=== PATIENT | female | born 1955 | race Caucasian/White ===

== ENCOUNTER 2017-12-11 11:54 | Observation (INO) ==
[2017-12-11] MEDS ORDERED: Morphine Sulfate Inj 2 MG/ML Vial IV.PUSH PRN (14:06)
[2017-12-11] MEDS ORDERED: Acetaminophen 500 MG Tablet PO PRN (14:06)
--- NOTE | 2017-12-11 15:40 | P.HP ---
History of Present Illness Primary Care Physician: No Primary Care Physician Chief Complaint: Chest pain History of Present Illness: 62-year-old female with no chronic medical illnesses who presented to the hospital for evaluation of chest pain. Patient states for last couple weeks she has been having intermittent chest discomfort which located middle part of her chest without any radiation to the neck, back, shoulder, arm. Patient states that the pain can happen during any time whether at rest or during exertion. States that the pain lasts for 20-30 minutes at a time and resolves on its own. Patient has been tolerating for the last couple weeks but then last night the pain was more severe and through the night she started developing some numbness in her left upper extremity. Because she is still experiencing the discomfort this morning and just did not feel right she went to the emergency department for evaluation. Patient states that she does get intermittent nausea and dizziness. However she denied any vomiting, diaphoresis , shortness of breath. Patient did have workup done and was relatively unremarkable. It was recommended that patient be observed in the chest pain center for further evaluation and management. - Diagnosis (1) Chest pain Review of Systems All other systems reviewed negative except as stated in HPI Cardiovascular: Reports chest pain PMF - History History Provided By: Patient - Medical History Medical History: Medical History (Last Reviewed 12/11/17 @ 15:39 by FREDERICK Funes) Patient denies medical problems - Surgical History Surgical History: Surgical History (Last Reviewed 12/11/17 @ 15:39 by FREDERICK Funes) Hx of section Hx of tonsillectomy - Family History Family History: Family History (Last Reviewed 12/11/17 @ 15:39 by FREDERICK Funes) Father Heart disease Mother Heart disease Sister Heart disease - Tobacco History Second Hand Smoke Exposure: No Smoking Status: Former smoker Tobacco Type: Cigarettes Packs Per Day: 1 Cigarettes Per Day: 20.0 Years Smoked: 20 Pack Years: 20.00 - Alcohol History How Often Do You Have a Drink Containing Alcohol: 2 to 4 times a month Medications and Allergies Active Medications: Active Medications Acetaminophen (Tylenol) 500 mg PO Q4H PRN PRN Reason: HEADACHE Hydrocodone Bitart/Acetaminophen ([place] 7.5/325) 1 tab PO Q4H PRN PRN Reason: PAIN SCALE 1 TO 7 Aspirin (Aspirin) 325 mg PO DAILY ALISTAIR Morphine Sulfate (Morphine Inj) 2 mg IV.PUSH Q4H PRN PRN Reason: PAIN SCALE 8 TO 10 Nitroglycerin (Nitrostat Sl) 0.4 mg SL Q5M PRN PRN Reason: CHEST PAIN Ondansetron HCl (Zofran Inj) 4 mg IV.PUSH Q6H PRN PRN Reason: NAUSEA Sodium Chloride (Ns Flush) 2 ml IV.FLUSH BID ALISTAIR Sodium Chloride (Ns Flush) 2 ml IV.FLUSH PRN PRN PRN Reason: FLUSH AFTER USING IV ACCESS Temazepam (Restoril) 15 mg PO HS PRN PRN Reason: INSOMNIA Allergies Allergy/AdvReac Type Severity Reaction Status Date / Time No Known Allergies Allergy Verified 12/11/17 12:53 Home Medications Medication Instructions Recorded Confirmed Type No Known Home Medications 12/11/17 12/11/17 History Exam Narrative: GENERAL: Well-developed, well-nourished, in no acute distress. alert and orientated HEENT: Head is normocephalic without any lesions or masses noted. Facial features are symmetric. Eyes: Pupils equal round reactive to light. Extraocular muscles are intact. Conjunctivae were clear. Oropharyngeal: Pharynx without any erythema edema. Tongue is midline without deviation. Buccal mucosa is moist without any masses or lesions NECK: Supple without any masses. Trachea midline no deviation. No JVD, no bruits are appreciated CARDIAC: Regular rhythm, regular rate. S1/S2 are heard. No murmurs gallops or rubs. LUNGS: Clear to auscultation bilaterally. No wheeze, rhonchi or rales. No use of accessory muscles on inspiration or expiration. ABDOMEN: Soft, nontender. Nondistended. Bowel sounds heard in all 4 quadrants. No organomegaly or masses. Negative rebound, negative guarding EXTREMITIES: No edema, pulses are equal bilaterally. No cyanosis or clubbing NEUROLOGY: Mood and affect appear appropriate. Cranial nerves II through XII grossly intact. Muscle strength 5/5 in upper and lower extremities bilaterally. Deep tendon reflexes are 2+ in upper and lower extremities bilaterally. Caprini VTE Risk Assessment Caprini VTE Risk Assessment: No/Low Risk (score <= 1) Caprini Risk Assessment Model: Point Value = 1 Point Value = 2 Point Value = 3 Point Value = 5 Age 41-60 Minor surgery BMI > 25 kg/m2 Swollen legs Varicose veins or History of unexplained or recurrent spontaneous Oral contraceptives or hormone replacement Sepsis (< 1 month) Serious lung disease, including pneumonia (< 1 month) Abnormal pulmonary function Acute myocardial infarction Congestive heart failure (< 1 month) History of inflammatory bowel disease Medical patient at bed rest Age 61-74 Arthroscopic surgery Major open surgery (> 45 min) Laparoscopic surgery (> 45 min) Malignancy Confined to bed (> 72 hours) Immobilizing plaster cast Central venous access Age >= 75 History of VTE Family history of VTE Factor V Leiden Prothrombin [id number] Lupus anticoagulant Anticardiolipin antibodies Elevated serum homocysteine Heparin-induced thrombocytopenia Other congenital or acquired thrombophilia Stroke (< 1 month) Elective arthroplasty Hip, pelvis, or leg fracture Acute spinal cord injury (< 1 month) Prophylaxis Regimen: Total Risk Factor Score Risk Level Prophylaxis Regimen 0-1 Low Early ambulation 2 Moderate Order ONE of the following: *Sequential Compression Device (SCD) *Heparin 5000 units SQ BID 3-4 Higher Order ONE of the following medications: *Heparin 5000 units SQ TID *Enoxaparin/Lovenox 40 mg SQ daily (WT < 150 kg, CrCl > 30 mL/min) *Enoxaparin/Lovenox 30 mg SQ daily (WT < 150 kg, CrCl > 10-29 mL/min) *Enoxaparin/Lovenox 30 mg SQ BID (WT < 150 kg, CrCl > 30 mL/min) AND/OR *Sequential Compression Device (SCD) 5 or more Highest Order ONE of the following medications: *Heparin 5000 units SQ TID (Preferred with Epidurals) *Enoxaparin/Lovenox 40 mg SQ daily (WT < 150 kg, CrCl > 30 mL/min) *Enoxaparin/Lovenox 30 mg SQ daily (WT < 150 kg, CrCl > 10-29 mL/min) *Enoxaparin/Lovenox 30 mg SQ BID (WT < 150 kg, CrCl > 30 mL/min) AND *Sequential Compression Device (SCD) Assessment and Plan - Assessment (1) Chest pain Code(s): R07.9 - Chest pain, unspecified Status: Acute - Plan Chest pain -Patient with increased risk factors include age, history of tobacco use, family history of heart disease -We will continue ruled patient out for acute coronary event with serial cardiac enzymes that thus far are negative, will continue monitor serial EKGs to evaluate for any changes -If patient ruled out for acute coronary event will pursue stress test to rule out any underlying ischemia -Continue aspirin, nitroglycerin, [place], morphine for pain control -Continue monitor telemetry DVT prevention -Sequential compression devices
[2017-12-11] MEDS ORDERED: Temazepam 15 MG Capsule PO PRN (21:00)
[2017-12-12 08:08] LABS: Creatine Kinase 70 U/L (26-192)
[2017-12-12 08:49] VITALS: RESP 18
[2017-12-12] MEDS ORDERED: Aspirin 325 MG Tablet PO SCH (09:00)
[2017-12-12 11:58] VITALS: BP 124/69; PULSE 72; TEMP 96.1; O2SAT 96
--- NOTE | 2017-12-12 13:47 | ECG ---
Date Performed: 12/12/2017 Time Performed: 07:23:10 PTAGE: 62 years EKG: SINUS BRADYCARDIA POSSIBLE RIGHT VENTRICULAR CONDUCTION DELAY BORDERLINE ECG PREVIOUS TRACING / 12.05 Since the previous tracing, no significant change noted DOCTOR: Ulises To Interpretating Date/Time 12/12/2017 13:46:47
--- NOTE | 2017-12-12 14:17 | P.PN ---
Subjective Interval history: 62-year-old female seen and examined today for follow-up on chest pain. Patient denies any recurrent chest pain. Vital signs are stable. Patient remains afebrile. Physical Exam Vital signs: Vital Signs 12/11/17 16:00 12/11/17 20:00 12/11/17 20:05 Temperature 97.8 F 97.4 F L Pulse Rate 53 L 55 L 59 L Respiratory Rate 19 16 Blood Pressure 143/73 H 137/70 Pulse Oximetry 96 97 12/11/17 20:30 12/12/17 00:00 12/12/17 04:00 Temperature 96.8 F L 96.8 F L Pulse Rate 57 L 65 Respiratory Rate 16 16 Blood Pressure 123/59 L 122/71 Pulse Oximetry 97 98 96 12/12/17 08:00 12/12/17 11:57 Temperature 97.0 F L 96.1 F L Pulse Rate 52 L 72 Respiratory Rate 18 18 Blood Pressure 138/80 124/69 Pulse Oximetry 97 96 Intake & Output 12/11/17 12/12/17 12/12/17 18:59 06:59 18:59 Intake Total 240 / 240 200 / 200 Balance 240 / 240 200 / 200 Intake: Oral 240 / 240 200 / 200 Other: # Voids 2 Narrative: GENERAL: Well-developed, well-nourished, in no acute distress. alert and orientated HEENT: Head is normocephalic without any lesions or masses noted. Facial features are symmetric. Eyes: Extraocular muscles are intact. Conjunctivae were clear. NECK: Supple without any masses. Trachea midline no deviation. No JVD, CARDIAC: Regular rhythm, regular rate. S1/S2 are heard. No murmurs gallops or rubs. LUNGS: Clear to auscultation bilaterally. No wheeze, rhonchi or rales. No use of accessory muscles on inspiration or expiration. ABDOMEN: Soft, nontender. Nondistended. Bowel sounds heard in all 4 quadrants. No organomegaly or masses. Negative rebound, negative guarding EXTREMITIES: No edema, pulses are equal bilaterally. No cyanosis or clubbing NEUROLOGY: Mood and affect appear appropriate. Cranial nerves II through XII grossly intact. Moving all extremities, speech is clear Results - Labs Laboratory Results - last 24 hr 12/12/17 07:20 Total Creatine Kinase 70 Troponin I Less than 0.02 L Assessment and Plan - Assessment (1) Chest pain Code(s): R07.9 - Chest pain, unspecified Status: Inactive - Plan Chest pain -Patient with increased risk factors include age, history of tobacco use, family history of heart disease -Patient has been ruled out for acute coronary event with serial cardiac enzymes are negative -Serial EKGs show normal sinus rhythm without any changes -Exercise stress test with performance of that indicate normal exam, no signs of ischemia -Continue aspirin, nitroglycerin, [place], morphine for pain control -Continue monitor telemetry DVT prevention -Sequential compression devices Discharge Planning: Discharge home in stable condition Activity: Ad yuri. Diet: Regular diet Medication per medication reconciliation Follow-up with primary medical doctor in 1 week
== END 2017-12-12 12:32 | disposition home or self-care (01) ==
LOC: PH3 11:54 → NEDDLT 11:54
PROVIDERS: ADMIT Hospitalist; ATTEND Hospitalist

== ENCOUNTER 2017-12-20 13:37 | Observation (INO) ==
[2017-12-20] MEDS ORDERED: Aluminum/Magnesium/Simethacone Susp 30 ML UDC PO ONE (14:27)
[2017-12-20] MEDS ORDERED: Sod Chloride 0.9% Inj 1,000 ML IV.CONT SCH (14:30)
--- NOTE | 2017-12-20 14:42 | ED ---
HPI General Chief complaint: Abdominal Pain Stated complaint: abd pain Time Seen by Provider: 12/20/17 14:18 History of Present Illness HPI narrative: 62-year-old female with history of GERD here for evaluation of epigastric abdominal pain that radiates to her back, nausea, and a few episodes of vomiting. Patient was recently admitted to the chest pain center on 12/11/17 , and ACS was ruled out. She reports that since Tuesday she has been having episodic epigastric pains that radiate to her back and up to her shoulder blades. She describes his pain as sharp and associated with nausea and vomiting. Currently she has mid back pain that feels deep. No trauma. Emesis consisted of food and is nonbloody. She had a loose bowel movement this morning. She reports that the pain is usually at its worse about 45 minutes after eating, and after vomiting the pain seems to improve. No history of abdominal surgeries. No fevers or chills. She drinks alcohol occasionally, uses NSAIDs on average around 2 times per week. Related Data Home Medications Medication Instructions Recorded Confirmed No Known Home Medications 12/19/17 12/20/17 Allergies Allergy/AdvReac Type Severity Reaction Status Date / Time No Known Allergies Allergy Verified 12/20/17 13:39 Review of Systems ROS: all other systems reviewed are negative [facility] Social History Social History Substance History: No History of Abuse Second Hand Smoke Exposure: No Smoking Status: Former smoker Tobacco Type: Cigarettes Packs Per Day: 1 Cigarettes Per Day: 20.0 Years Smoked: 20 Pack-Years: 20.00 How Often Do You Have a Drink Containing Alcohol: Monthly or less Recent Travel in [facility] within the Last 8 Weeks: No Recent Out of Country Travel within the Last 8 Weeks: No Immunization History Tetanus Immunization: Unsure Exam Narrative Exam Narrative: GENERAL: Well-developed, well-nourished, comfortable, no apparent distress. SKIN: Focused skin assessment warm/dry. No rash. HEAD: Atraumatic. Normocephalic. EYES: Pupils equal and round. No scleral icterus. No injection or drainage. ENT: Mucous membranes pink and moist. NECK: Trachea midline. No JVD. CARDIOVASCULAR: Regular rate and rhythm. No murmur appreciated. RESPIRATORY: No accessory muscle use. Clear to auscultation. Breath sounds equal bilaterally. GASTROINTESTINAL: Abdomen soft, nondistended. Mild mid and epigastric tenderness without peritoneal signs. The rest of the abdomen is soft and nontender. No hernias. Normal bowel sounds. MUSCULOSKELETAL: No obvious deformities. No clubbing. No cyanosis. No edema. No CVA tenderness. NEUROLOGICAL: Awake and alert. No obvious cranial nerve deficits. Motor grossly within normal limits. Normal speech. PSYCHIATRIC: Appropriate mood and affect; insight and judgment normal. Course Initial Documented Vital Signs Temperature 97.7 F 12/20/17 13:39 Pulse Rate 69 12/20/17 13:39 Respiratory Rate 16 12/20/17 13:39 Blood Pressure 143/73 H 12/20/17 13:39 Pulse Oximetry 98 12/20/17 13:39 Last Documented Vital Signs Temperature 97.7 F 12/20/17 13:39 Pulse Rate 72 12/20/17 15:00 Respiratory Rate 16 12/20/17 15:00 Blood Pressure 122/67 12/20/17 15:00 Pulse Oximetry 98 12/20/17 15:00 Medical Decision Making MDM Narrative Medical decision making narrative: Vital signs reviewed. Labs are remarkable for slightly elevated LFTs with a T bili of 2.2. CT abdomen pelvis: CONCLUSION: Approximate 4 mm distal common bile duct stone with minimal prominence of the common bile duct. Questionable gallstones is of the gallbladder. Patient and the patient's significant other were made aware of all findings. She has declined pain medication here in the emergency department. Case discussed with on-call bomb squad officer Dr. Rodríguez. Recommends transferring the patient to the main hospital for ERCP. Recommends 1 dose of Cipro. The patient was made aware of plan for transfer to the main hospital. Medical Screen Exam Complete: Yes Emergency Medical Condition: Yes Differential Diagnosis Differential Diagnosis: Gastritis, peptic ulcer disease, pancreatitis, cholelithiasis, cholecystitis, cholangitis, bowel obstruction less likely, ACS Lab Data Result diagrams: 12/20/17 15:00 12/20/17 15:00 Lab Results 12/20/17 12/20/17 12/20/17 Range/Units 15:00 15:00 15:00 CBC w Diff Auto diff final WBC 7.4 (4.0-11.0) th/mm3 RBC 4.12 (4.00-5.30) mil/mm3 Hgb 13.9 (11.6-15.3) gm/dL Hct 39.4 (35.0-46.0) % MCV 95.5 (80.0-100.0) fL MCH 33.7 (27.0-34.0) pg MCHC 35.3 (32.0-36.0) % RDW 12.5 (11.6-17.2) % Plt Count 225 D (150-450) th/mm3 MPV 6.7 L (7.0-11.0) fL Neut % (Auto) 79.7 H (16.0-70.0) % Lymph % (Auto) 13.8 (9.0-44.0) % [place] % (Auto) 5.5 (0.0-8.0) % Eos % (Auto) 0.7 (0.0-4.0) % Baso % (Auto) 0.3 (0.0-2.0) % Neut # (Auto) 5.9 (1.8-7.7) th/mm3 Lymph # (Auto) 1.0 (1.0-4.8) th/mm3 [place] # (Auto) 0.4 (0.0-0.9) th/mm3 Eos # (Auto) 0.1 (0.0-0.4) th/mm3 Baso # (Auto) 0.0 (0.0-0.2) th/mm3 WBC Differential . Differential Comment . PT 10.5 (9.8-11.6) sec INR 1.0 Ratio APTT 25.1 (24.3-30.1) sec Sodium 138 (136-145) meq/L Potassium 3.8 (3.5-5.1) meq/L Chloride 100 (98-107) meq/L Carbon Dioxide 28.7 (21.0-32.0) meq/L Anion Gap 9 (5-15) meq/L BUN 14 (7-18) mg/dL Creatinine 0.83 (0.50-1.00) mg/dL Estimated GFR 70 L (>89) mL/min Random Glucose 107 H (74-106) mg/dL Calcium 8.6 (8.5-10.1) mg/dL Magnesium 2.1 (1.5-2.5) mg/dL Total Bilirubin 2.2 H (0.2-1.0) mg/dL AST 233 H (15-37) U/L ALT 158 H (10-53) U/L Alkaline Phosphatase 192 H (45-117) U/L Total Creatine Kinase 99 (26-192) U/L Troponin I Less than 0.02 L (0.02-0.05) ng/mL Total Protein 7.2 (6.4-8.2) g/dL Albumin 3.5 (3.4-5.0) g/dL Lipase 173 (73-393) U/L Urine Color (Yellw/Straw) Urine Clarity (Clear) Urine pH (5.0-8.5) Ur Specific Anthony (1.002-1.035) Urine Protein (Neg-Trace) mg/dL Urine Glucose (UA) (Negative) mg/dL Urine Ketones (Negative) mg/dL Urine Occult Blood (Negative) Urine Nitrate (Negative) Urine Bilirubin (Negative) Urine Urobilinogen (Less than 2) mg/dL Ur Leukocyte Esterase (Negative) 12/20/17 Range/Units 16:10 CBC w Diff WBC (4.0-11.0) th/mm3 RBC (4.00-5.30) mil/mm3 Hgb (11.6-15.3) gm/dL Hct (35.0-46.0) % MCV (80.0-100.0) fL MCH (27.0-34.0) pg MCHC (32.0-36.0) % RDW (11.6-17.2) % Plt Count (150-450) th/mm3 MPV (7.0-11.0) fL Neut % (Auto) (16.0-70.0) % Lymph % (Auto) (9.0-44.0) % [place] % (Auto) (0.0-8.0) % Eos % (Auto) (0.0-4.0) % Baso % (Auto) (0.0-2.0) % Neut # (Auto) (1.8-7.7) th/mm3 Lymph # (Auto) (1.0-4.8) th/mm3 [place] # (Auto) (0.0-0.9) th/mm3 Eos # (Auto) (0.0-0.4) th/mm3 Baso # (Auto) (0.0-0.2) th/mm3 WBC Differential Differential Comment PT (9.8-11.6) sec INR Ratio APTT (24.3-30.1) sec Sodium (136-145) meq/L Potassium (3.5-5.1) meq/L Chloride (98-107) meq/L Carbon Dioxide (21.0-32.0) meq/L Anion Gap (5-15) meq/L BUN (7-18) mg/dL Creatinine (0.50-1.00) mg/dL Estimated GFR (>89) mL/min Random Glucose (74-106) mg/dL Calcium (8.5-10.1) mg/dL Magnesium (1.5-2.5) mg/dL Total Bilirubin (0.2-1.0) mg/dL AST (15-37) U/L ALT (10-53) U/L Alkaline Phosphatase (45-117) U/L Total Creatine Kinase (26-192) U/L Troponin I (0.02-0.05) ng/mL Total Protein (6.4-8.2) g/dL Albumin (3.4-5.0) g/dL Lipase (73-393) U/L Urine Color Yellow (Yellw/Straw) Urine Clarity Clear (Clear) Urine pH 6.5 (5.0-8.5) Ur Specific Anthony Less/equal 1.005 (1.002-1.035) Urine Protein Negative (Neg-Trace) mg/dL Urine Glucose (UA) Negative (Negative) mg/dL Urine Ketones Negative (Negative) mg/dL Urine Occult Blood Negative (Negative) Urine Nitrate Negative (Negative) Urine Bilirubin Negative (Negative) Urine Urobilinogen 4.0 H (Less than 2) mg/dL Ur Leukocyte Esterase Negative (Negative) Imaging Data Radiologist's impression: Abdomen/Pelvis CT 12/20/17 14:27 CONCLUSION: Approximate 4 mm distal common bile duct stone with minimal prominence of the common bile duct. Questionable gallstones is of the gallbladder. ECG Data Attestation: I personally reviewed and interpreted this ECG as follows: (Sinus, rate 66, normal axis, normal intervals, no acute ischemic abnormality.) Discharge Plan Discharge Disposition Patient Disposition: 30 Still Patient Discharge Condition Condition: Stable Discharge Details Diagnosis: Choledocholithiasis Physicians Team ED Provider: Yvon Gordillo Primary Care Provider: UNKNOWN, Rxs /Orders / Referrals /Forms Prescriptions: No Action No Known Home Medications RF: 0 Status ED Status: With Doctor
[2017-12-20 15:17] LABS: Baso % (Auto) 0.3 % (0.0-2.0); Eos # (Auto) 0.1 th/mm3 (0.0-0.4); Eos % (Auto) 0.7 % (0.0-4.0); Hematocrit 39.4 % (35.0-46.0); Hemoglobin 13.9 gm/dL (11.6-15.3); Lymph % (Auto) 13.8 % (9.0-44.0); Mean Corpuscular HGB Conc 35.3 % (32.0-36.0); Mean Corpuscular Hemoglobin 33.7 pg (27.0-34.0); Mean Corpuscular Volume 95.5 fL (80.0-100.0); Mean Platelet Volume 6.7 fL (7.0-11.0); Mono # (Auto) 0.4 th/mm3 (0.0-0.9); Mono % (Auto) 5.5 % (0.0-8.0); Neut # (Auto) 5.9 th/mm3 (1.8-7.7); Neut % (Auto) 79.7 % (16.0-70.0); Platelet Count 225 th/mm3 (150-450); Red Blood Count 4.12 mil/mm3 (4.00-5.30); Red Cell Distribution Width 12.5 % (11.6-17.2); White Blood Count 7.4 th/mm3 (4.0-11.0)
[2017-12-20 15:19] LABS: Chloride 100 meq/L (98-107); Potassium 3.8 meq/L (3.5-5.1); Sodium 138 meq/L (136-145)
[2017-12-20 15:23] LABS: Albumin 3.5 g/dL (3.4-5.0); Anion Gap 9 meq/L (5-15); Blood Urea Nitrogen 14 mg/dL (7-18); Calcium 8.6 mg/dL (8.5-10.1); Carbon Dioxide 28.7 meq/L (21.0-32.0); Glucose,Random 107 mg/dL (74-106); Lipase 173 U/L (73-393); Magnesium 2.1 mg/dL (1.5-2.5)
[2017-12-20 15:24] LABS: Activated Partial Thrombo Time 25.1 sec (24.3-30.1); Prothrombin Time 10.5 sec (9.8-11.6)
[2017-12-20 15:26] LABS: Alanine Aminotransferase 158 U/L (10-53); Aspartate Aminotransferase 233 U/L (15-37); Glomerular Filtration Rate 70 mL/min (>89)
[2017-12-20 15:28] LABS: Total Protein 7.2 g/dL (6.4-8.2)
[2017-12-20 15:29] LABS: Alkaline Phosphatase 192 U/L (45-117)
[2017-12-20 15:32] LABS: Creatine Kinase 99 U/L (26-192)
--- NOTE | 2017-12-20 15:57 | CT ---
EXAM DATE: 12/20/2017 2:35 PM EDT AGE/SEX: 62 years / Female INDICATIONS: Epigastric pain radiating to back. CLINICAL DATA: This is the patient's initial encounter. Patient reports that signs and symptoms have been present for 3 days and indicates a pain score of 0/10. MEDICAL/SURGICAL HISTORY: Gastroesophageal reflux disease. section. ORAL CONTRAST: No oral contrast ingested. RADIATION DOSE: 14.34 CTDI (mGy) COMPARISON: No prior exams available for comparison. TECHNIQUE: Multiple contiguous axial images were obtained through the abdomen and pelvis following b olus infusion of 95 ml Omnipaque 350 (iohexol) nonionic water-soluble contrast as a single exam dos e. No oral contrast ingested. Using automated exposure control and adjustment of the mA and/or kV ac cording to patient size, radiation dose was kept as low as reasonably achievable to obtain optimal di agnostic quality images. DICOM format image data is available electronically for review and comparis on. FINDINGS: Abdomen CT: The liver, spleen, pancreas, kidneys, adrenals are unremarkable. There is no evidence for any appreci able pathological adenopathy, free fluid, or bowel obstruction. Chronic vascular atherosclerotic patsy cifications are seen involving the aorta. The common bile duct measures 6 mm with an approximate 4 mm distal common bile duct stone at the level of the ampulla of Vater. The gallbladder measures 8.3 cm in AP diameter slightly prominent and there are questionable gallstones in the gallbladder. Pelvic CT: There is no evidence for mass, abscess formation, or any significant adenopathy within the pelvis. T here are scattered diverticuli within the colon mainly the sigmoid colon without signs of diverticuli tis for technique. CONCLUSION: Approximate 4 mm distal common bile duct stone with minimal prominence of the common rani e duct. Questionable gallstones is of the gallbladder. Electronically signed by: John Neal MD 12/20/2017 3:56 PM EDT
[2017-12-20] MEDS ORDERED: Ciprofloxacin 400 MG/200 ML 400 MG/200 ML PIGGYBACK IV.SIG ONE (16:12)
[2017-12-20 16:27] LABS: Bilirubin,Urine Negative (Negative); Clarity,Urine Clear (Clear); Color,Urine Yellow (Yellw/Straw); Glucose,Urine (UA) Negative (Negative); Leukocyte Esterase,Urine Negative (Negative); Nitrite,Urine Negative (Negative); PH,Urine 6.5 (5.0-8.5); Specific Gravity,Urine Less/Equal 1.005 (1.002-1.035)
[2017-12-20 16:34] LABS: Squamous Epithelial Cell,Urine 0-5 /hpf (0-5); WBC,Urine 0-5 /hpf (0-5)
[2017-12-20] MEDS ORDERED: Bisacodyl 10 MG Supp RECTAL PRN (16:47)
[2017-12-20] MEDS ORDERED: Morphine Sulfate Inj 2 MG/ML Vial IV.PUSH PRN (16:49)
--- NOTE | 2017-12-20 16:55 | P.HP ---
History of Present Illness Primary Care Physician: UNKNOWN Chief Complaint: Abdominal pain History of Present Illness: 62-year-old female with no chronic medical illnesses who presented to hospital because of abdominal pain. Patient states that 3 days ago after she ate dinner she started developing pain in her epigastric right abdominal pain which progressively got worse. It did not improve so she came to the hospital for evaluation. Patient denies any nausea, vomiting, diarrhea, constipation. Patient was recently evaluated in the hospital approximate 1 week ago for chest pain. The patient did have full workup done with stress test which was unremarkable for any cardiac etiology. During that episode her pain was different. She indicates that her pain was located in the center part of her chest without any radiation, this time patient states that she is having right upper quadrant pain that started after eating. Patient had workup done emergency department found to have choledocholithiasis. Case was discussed with GI who plans to perform ERCP. - Diagnosis (1) Choledocholithiasis Review of Systems All other systems reviewed negative except as stated in HPI Gastrointestinal: Reports abdominal pain PMFSH - History History Provided By: Patient - Medical History Medical History: Medical History (Last Reviewed 12/20/17 @ 16:53 by RFEDERICK Funes) Patient denies medical problems - Surgical History Surgical History: Surgical History (Last Reviewed 12/20/17 @ 16:53 by FREDERICK Funes) Hx of section Hx of tonsillectomy - Family History Family History: Family History (Last Reviewed 12/20/17 @ 16:53 by FREDERICK Funes) Father Heart disease Mother Heart disease Sister Heart disease - Tobacco History Second Hand Smoke Exposure: No Smoking Status: Former smoker Tobacco Type: Cigarettes Packs Per Day: 1 Cigarettes Per Day: 20.0 Years Smoked: 20 Pack Years: 20.00 - Alcohol History How Often Do You Have a Drink Containing Alcohol: Monthly or less - Substance Use History Substance History: No History of Abuse - Travel History Recent Travel in the [place] Within the Last 8 Weeks: No Recent Travel Out of the Country Within the Last 8 Weeks: No - Immunization History Tetanus Immunization: Unsure Medications and Allergies Active Medications: Active Medications Al Hydroxide/Mg Hydroxide (Milk Of Magnesia Liq) 30 ml PO Q12H PRN PRN Reason: Mild Constipation Bisacodyl (Dulcolax Supp) 10 mg RECTAL DAILY PRN PRN Reason: SEVERE CONSITIPATION Sodium Chloride (Ns Inj) 1,000 mls @ 125 mls/hr IV.CONT .Q8H ALISTAIR Stop: 12/20/17 22:29 Last Admin: 12/20/17 15:07 Dose: 125 mls/hr Ciprofloxacin/Dextrose (Cipro 400 Mg/200 Ml Inj) 400 mg in 200 mls @ 200 mls/ hr IV.SIG ONCE ONE Stop: 12/20/17 17:11 Last Admin: 12/20/17 16:33 Dose: 200 mls/hr Sodium Chloride (Ns Inj) 1,000 mls @ 100 mls/hr IV.CONT .Q10H ALISTAIR Lactulose (Lactulose Liq) 30 ml PO DAILY PRN PRN Reason: SEVERE CONSITIPATION Morphine Sulfate (Morphine Inj) 2 mg IV.PUSH Q4H PRN PRN Reason: PAIN SCALE 6 TO 10 Ondansetron HCl (Zofran Inj) 4 mg IV.PUSH Q6H PRN PRN Reason: NAUSEA OR VOMITING Senna/Docusate Sodium (Emily-Colace) 1 tab PO BID ALISTAIR Sennosides (Senokot) 17.2 mg PO Q12H PRN PRN Reason: Moderate Constipation Sodium Chloride (Ns Flush) 2 ml IV.FLUSH PRN PRN PRN Reason: FLUSH AFTER USING IV ACCESS Allergies Allergy/AdvReac Type Severity Reaction Status Date / Time No Known Allergies Allergy Verified 12/20/17 13:39 Home Medications Medication Instructions Recorded Confirmed Type No Known Home Medications 12/19/17 12/20/17 History Exam Vital signs: Vital Signs 12/20/17 13:39 12/20/17 15:00 Temperature 97.7 F Pulse Rate 69 72 Respiratory Rate 16 16 Blood Pressure 143/73 H 122/67 Pulse Oximetry 98 98 Intake & Output 12/19/17 12/20/17 12/20/17 18:59 06:59 18:59 Weight 78 kg Narrative: GENERAL: Well-developed, well-nourished, in no acute distress. alert and orientated HEENT: Head is normocephalic without any lesions or masses noted. Facial features are symmetric. Eyes: Pupils equal round reactive to light. Extraocular muscles are intact. Conjunctivae were clear. Oropharyngeal: Pharynx without any erythema edema. Tongue is midline without deviation. Buccal mucosa is moist without any masses or lesions NECK: Supple without any masses. Trachea midline no deviation. No JVD, no bruits are appreciated CARDIAC: Regular rhythm, regular rate. S1/S2 are heard. No murmurs gallops or rubs. LUNGS: Clear to auscultation bilaterally. No wheeze, rhonchi or rales. No use of accessory muscles on inspiration or expiration. ABDOMEN: Soft, nontender. Nondistended. Bowel sounds heard in all 4 quadrants. No organomegaly or masses. Negative rebound, negative guarding, negative García sign EXTREMITIES: No edema, pulses are equal bilaterally. No cyanosis or clubbing NEUROLOGY: Mood and affect appear appropriate. Cranial nerves II through XII grossly intact. Muscle strength 5/5 in upper and lower extremities bilaterally. Deep tendon reflexes are 2+ in upper and lower extremities bilaterally. Results - Labs CBC & Chem 7: 12/20/17 15:00 12/20/17 15:00 Labs: Laboratory Results - last 24 hr 12/20/17 12/20/17 12/20/17 15:00 15:00 15:00 CBC w Diff Auto diff final WBC 7.4 RBC 4.12 Hgb 13.9 Hct 39.4 MCV 95.5 MCH 33.7 MCHC 35.3 RDW 12.5 Plt Count 225 D MPV 6.7 L Neut % (Auto) 79.7 H Lymph % (Auto) 13.8 Stevens % (Auto) 5.5 Eos % (Auto) 0.7 Baso % (Auto) 0.3 Neut # (Auto) 5.9 Lymph # (Auto) 1.0 Stevens # (Auto) 0.4 Eos # (Auto) 0.1 Baso # (Auto) 0.0 WBC Differential . Differential Comment . PT 10.5 INR 1.0 APTT 25.1 Sodium 138 Potassium 3.8 Chloride 100 Carbon Dioxide 28.7 Anion Gap 9 BUN 14 Creatinine 0.83 Estimated GFR 70 L Random Glucose 107 H Calcium 8.6 Magnesium 2.1 Total Bilirubin 2.2 H AST 233 H ALT 158 H Alkaline Phosphatase 192 H Total Creatine Kinase 99 Troponin I Less than 0.02 L Total Protein 7.2 Albumin 3.5 Lipase 173 Urine Color Urine Clarity Urine pH Ur Specific [place] Urine Protein Urine Glucose (UA) Urine Ketones Urine Occult Blood Urine Nitrate Urine Bilirubin Urine Urobilinogen Ur Leukocyte Esterase Urine WBC Ur Squamous Epith Cells Micro UA Comment Ur Microscopic Review Urine Culture Comments 12/20/17 16:10 CBC w Diff WBC RBC Hgb Hct MCV MCH MCHC RDW Plt Count MPV Neut % (Auto) Lymph % (Auto) Stevens % (Auto) Eos % (Auto) Baso % (Auto) Neut # (Auto) Lymph # (Auto) Stevens # (Auto) Eos # (Auto) Baso # (Auto) WBC Differential Differential Comment PT INR APTT Sodium Potassium Chloride Carbon Dioxide Anion Gap BUN Creatinine Estimated GFR Random Glucose Calcium Magnesium Total Bilirubin AST ALT Alkaline Phosphatase Total Creatine Kinase Troponin I Total Protein Albumin Lipase Urine Color Yellow Urine Clarity Clear Urine pH 6.5 Ur Specific [place] Less/equal 1.005 Urine Protein Negative Urine Glucose (UA) Negative Urine Ketones Negative Urine Occult Blood Negative Urine Nitrate Negative Urine Bilirubin Negative Urine Urobilinogen 4.0 H Ur Leukocyte Esterase Negative Urine WBC 0-5 Ur Squamous Epith Cells 0-5 Micro UA Comment Culture not ind Ur Microscopic Review Microscopic reviewed Urine Culture Comments Culture not ind - Imaging Impressions Abdomen/Pelvis CT 12/20/17 14:27 CONCLUSION: Approximate 4 mm distal common bile duct stone with minimal prominence of the common bile duct. Questionable gallstones is of the gallbladder. Caprini VTE Risk Assessment Caprini VTE Risk Assessment: No/Low Risk (score <= 1) Caprini Risk Assessment Model: Point Value = 1 Point Value = 2 Point Value = 3 Point Value = 5 Age 41-60 Minor surgery BMI > 25 kg/m2 Swollen legs Varicose veins or History of unexplained or recurrent spontaneous Oral contraceptives or hormone replacement Sepsis (< 1 month) Serious lung disease, including pneumonia (< 1 month) Abnormal pulmonary function Acute myocardial infarction Congestive heart failure (< 1 month) History of inflammatory bowel disease Medical patient at bed rest Age 61-74 Arthroscopic surgery Major open surgery (> 45 min) Laparoscopic surgery (> 45 min) Malignancy Confined to bed (> 72 hours) Immobilizing plaster cast Central venous access Age >= 75 History of VTE Family history of VTE Factor V Leiden Prothrombin [id number] Lupus anticoagulant Anticardiolipin antibodies Elevated serum homocysteine Heparin-induced thrombocytopenia Other congenital or acquired thrombophilia Stroke (< 1 month) Elective arthroplasty Hip, pelvis, or leg fracture Acute spinal cord injury (< 1 month) Prophylaxis Regimen: Total Risk Factor Score Risk Level Prophylaxis Regimen 0-1 Low Early ambulation 2 Moderate Order ONE of the following: *Sequential Compression Device (SCD) *Heparin 5000 units SQ BID 3-4 Higher Order ONE of the following medications: *Heparin 5000 units SQ TID *Enoxaparin/Lovenox 40 mg SQ daily (WT < 150 kg, CrCl > 30 mL/min) *Enoxaparin/Lovenox 30 mg SQ daily (WT < 150 kg, CrCl > 10-29 mL/min) *Enoxaparin/Lovenox 30 mg SQ BID (WT < 150 kg, CrCl > 30 mL/min) AND/OR *Sequential Compression Device (SCD) 5 or more Highest Order ONE of the following medications: *Heparin 5000 units SQ TID (Preferred with Epidurals) *Enoxaparin/Lovenox 40 mg SQ daily (WT < 150 kg, CrCl > 30 mL/min) *Enoxaparin/Lovenox 30 mg SQ daily (WT < 150 kg, CrCl > 10-29 mL/min) *Enoxaparin/Lovenox 30 mg SQ BID (WT < 150 kg, CrCl > 30 mL/min) AND *Sequential Compression Device (SCD) Assessment and Plan - Assessment (1) Choledocholithiasis Code(s): K80.50 - Calculus of bile duct without cholangitis or cholecystitis without obstruction Status: Acute - Plan Choledocholithiasis -CT scan does show a 4 mm distal common bile duct stone with minimal prominence of the common bile duct, questionable gallstones in the gallbladder -Patient does have elevated liver enzymes and hyperbilirubinemia -GI consulted for further recommendations, plans for ERCP -Continue IV fluids, pain control DVT prevention -Sequential compression devices
[2017-12-20] MEDS: Sod Chloride 0.9% Inj 1,000 ML IV.CONT SCH (17:26)
--- NOTE | 2017-12-20 18:55 | MB ---
cc: Osman Rodríguez MD,Yvon Bustlilos MD DATE: 12/20/2017 REQUESTING PHYSICIAN: Emergency room doctor, Yvon Gordillo MD. REASON FOR CONSULTATION: Choledocholithiasis, abdominal pain with elevated liver function tests. HISTORY OF PRESENT ILLNESS: Ms. Roberts is a 62-year-old lady who states she has been having some issues with abdominal pain and discomfort on and off for some time. She actually went to the emergency room yesterday, but her pain got better and was discharged. She started having pain again today and she came back to the hospital. Workup this time included elevated liver function tests and a CT scan showing cholelithiasis and choledocholithiasis. The patient has been complaining of some nausea and vomiting, but currently, she feels well and has no nausea or vomiting and no abdominal pain. REVIEW OF SYSTEMS: No fever or chills. No nausea or vomiting at this time. PAST MEDICAL HISTORY: None given. PAST SURGICAL HISTORY: The patient has had an EGD and colonoscopy in the past, otherwise none given. FAMILY HISTORY: Noncontributory. SOCIAL HISTORY: The patient is a smoker, does not drink alcohol. PHYSICAL EXAMINATION: GENERAL: Reveals a well-nourished lady in no apparent distress. VITAL SIGNS: Stable. HEAD AND NECK: Slightly icteric sclerae. CHEST: Bilateral air entry with rales. ABDOMEN: Soft, nontender. No hepatosplenomegaly. Bowel sounds are present. CENTRAL NERVOUS SYSTEM: Nonfocal. RECTAL: Deferred at this time. LABORATORY DATA: Reveal a white cell count of 7.4. INR is 1.0. Creatinine 0.83. Total bilirubin 2.2, AST 233, ALT 158, alkaline phosphatase 192, lipase 173. Recent CT of the abdomen and pelvis reveals choledocholithiasis, possible cholelithiasis, mild prominence of the common bile duct. IMPRESSION: Cholelithiasis and choledocholithiasis. RECOMMENDATIONS: The patient needs an ERCP. A transfer has been [facility] to [facility]. Dr. Estrada notified of the transfer. Further recommendations to follow. Thank you for this referral. MD FANNY Hutchins/tiny , 04:47 PM , 04:54 PM
[2017-12-20] MEDS ORDERED: Ibuprofen 400 MG Tablet PO ONE (20:34)
[2017-12-20] MEDS: Senna/Docusate Sodium 8.6/50 MG Tablet PO SCH (21:41)
[2017-12-21] MEDS: Sod Chloride 0.9% Inj 1,000 ML IV.CONT SCH ×2 (05:47→21:08)
--- NOTE | 2017-12-21 06:55 | ECG ---
Date Performed: 12/20/2017 Time Performed: 15:56:27 PTAGE: 62 years EKG: Sinus rhythm POSSIBLE RIGHT VENTRICULAR CONDUCTION DELAY BORDERLINE ECG No significant change from prior electroc ardiogram. DOCTOR: Candelario Rob Interpretating Date/Time 12/21/2017 06:54:45
[2017-12-21] MEDS: Senna/Docusate Sodium 8.6/50 MG Tablet PO SCH ×2 (08:27→21:10)
[2017-12-21 10:44] LABS: Baso % (Auto) 0.8 % (0.0-2.0); Eos # (Auto) 0.1 th/mm3 (0.0-0.4); Eos % (Auto) 1.6 % (0.0-4.0); Hemoglobin 13.4 gm/dL (11.6-15.3); Lymph # (Auto) 1.4 th/mm3 (1.0-4.8); Lymph % (Auto) 25.3 % (9.0-44.0); Mean Corpuscular HGB Conc 35.3 % (32.0-36.0); Mean Corpuscular Hemoglobin 34.4 pg (27.0-34.0); Mean Corpuscular Volume 97.5 fL (80.0-100.0); Mean Platelet Volume 6.4 fL (7.0-11.0); Mono # (Auto) 0.3 th/mm3 (0.0-0.9); Mono % (Auto) 6.3 % (0.0-8.0); Neut # (Auto) 3.5 th/mm3 (1.8-7.7); Platelet Count 172 th/mm3 (150-450); Red Cell Distribution Width 12.7 % (11.6-17.2); White Blood Count 5.4 th/mm3 (4.0-11.0)
[2017-12-21 11:08] LABS: Albumin 3.4 g/dL (3.4-5.0); Anion Gap 8 meq/L (5-15); Aspartate Aminotransferase 99 U/L (15-37); Blood Urea Nitrogen 13 mg/dL (7-18); Calcium 8.4 mg/dL (8.5-10.1); Carbon Dioxide 25.7 meq/L (21.0-32.0); Chloride 105 meq/L (98-107); Glomerular Filtration Rate 78 mL/min (>89); Glucose,Random 71 mg/dL (74-106); Potassium 3.8 meq/L (3.5-5.1); Sodium 139 meq/L (136-145)
[2017-12-21 11:10] LABS: Alanine Aminotransferase 149 U/L (10-53)
[2017-12-21 11:12] LABS: Alkaline Phosphatase 180 U/L (45-117); Total Protein 6.8 g/dL (6.4-8.2)
--- NOTE | 2017-12-21 14:37 | P.DS ---
Date of admission: 12/20/17 16:51 Primary care physician: UNKNOWN Brief History from admission: 62-year-old female with no chronic medical illnesses who presented to hospital because of abdominal pain. Patient states that 3 days ago after she ate dinner she started developing pain in her epigastric right abdominal pain which progressively got worse. It did not improve so she came to the hospital for evaluation. Patient denies any nausea, vomiting, diarrhea, constipation. Patient was recently evaluated in the hospital approximate 1 week ago for chest pain. The patient did have full workup done with stress test which was unremarkable for any cardiac etiology. During that episode her pain was different. She indicates that her pain was located in the center part of her chest without any radiation, this time patient states that she is having right upper quadrant pain that started after eating. Patient had workup done emergency department found to have choledocholithiasis. Case was discussed with GI who plans to perform ERCP. DS: Summary Hospital Course: Mrs. Roberts is a 62 year old female. She came in with abdominal pain. Etiology was found to be choledocholithiasis without gallbladder involvement. She had an ERCP today and is feeling well post procedure. PO trial tolerated. She is interested in outpatient follow up with surgery rather than inpatient surgical consult regarding options for a future cholecystectomy. Medically stable and clear for discharge to home today. - Time Spent with Patient Total time spent providing and/or coordinating discharge services: Less than 30 minutes - Quality: VTE Deep Vein Thrombosis/Pulmonary Embolism Present on Admission: No Exam Vital signs: Vital Signs 12/20/17 15:00 12/20/17 17:30 12/20/17 18:30 Temperature Pulse Rate 72 63 57 L Respiratory Rate 16 16 16 Blood Pressure 122/67 142/69 H 134/67 Pulse Oximetry 98 99 97 12/20/17 19:29 12/20/17 20:15 12/21/17 00:00 Temperature 98 F 98.1 F Pulse Rate 78 57 L 54 L Respiratory Rate 18 16 16 Blood Pressure 125/72 132/63 106/57 L Pulse Oximetry 98 96 12/21/17 04:00 12/21/17 08:00 Temperature 97.7 F 97.6 F Pulse Rate 53 L 57 L Respiratory Rate 16 20 Blood Pressure 103/54 L 129/69 Pulse Oximetry 97 97 Intake & Output 12/20/17 12/21/17 12/21/17 18:59 06:59 18:59 Intake Total 465 / 465 1240 / 1240 Balance 465 / 465 1240 / 1240 Weight 78 kg 78 kg Intake: IV 465 / 465 1000 / 1000 NS Inj 1,000 ML @ 100 mls/hr IV 265 / 265 1000 / 1000 .CONT .Q10H ALISTAIR Rx#:[id number] Cipro 400 MG/200 ML Inj 400 mg 200 / 200 In 200 ml @ 200 mls/hr IV.SIG ONCE ONE Rx#:[id number] Oral 240 / 240 Other: # Voids 0 Date of Last Bowel Movement 12/20/17 # Bowel Movements 0 Weight On Admission 77.8 kg Results Procedures completed during hospitalization: ERCP Labs on day of discharge: Labs from last 24 hours 12/21/17 12/21/17 12/20/17 10:00 10:00 16:10 CBC w Diff WBC 5.4 RBC 3.90 L Hgb 13.4 Hct 38.0 MCV 97.5 MCH 34.4 H MCHC 35.3 RDW 12.7 Plt Count 172 MPV 6.4 L Neut % (Auto) 66.0 Lymph % (Auto) 25.3 [place] % (Auto) 6.3 Eos % (Auto) 1.6 Baso % (Auto) 0.8 Neut # (Auto) 3.5 Lymph # (Auto) 1.4 [place] # (Auto) 0.3 Eos # (Auto) 0.1 Baso # (Auto) 0.0 WBC Differential . Differential Comment Auto diff final PT INR APTT Sodium 139 Potassium 3.8 Chloride 105 Carbon Dioxide 25.7 Anion Gap 8 BUN 13 Creatinine 0.75 Estimated GFR 78 L Random Glucose 71 L Calcium 8.4 L Magnesium Total Bilirubin 0.8 AST 99 H ALT 149 H Alkaline Phosphatase 180 H Total Creatine Kinase Troponin I Total Protein 6.8 Albumin 3.4 Lipase Urine Color Yellow Urine Clarity Clear Urine pH 6.5 Ur Specific [place] Less/equal 1.005 Urine Protein Negative Urine Glucose (UA) Negative Urine Ketones Negative Urine Occult Blood Negative Urine Nitrate Negative Urine Bilirubin Negative Urine Urobilinogen 4.0 H Ur Leukocyte Esterase Negative Urine WBC 0-5 Ur Squamous Epith Cells 0-5 Micro UA Comment Culture not ind Ur Microscopic Review Microscopic reviewed Urine Culture Comments Culture not ind 12/20/17 12/20/17 12/20/17 15:00 15:00 15:00 CBC w Diff Auto diff final WBC 7.4 RBC 4.12 Hgb 13.9 Hct 39.4 MCV 95.5 MCH 33.7 MCHC 35.3 RDW 12.5 Plt Count 225 D MPV 6.7 L Neut % (Auto) 79.7 H Lymph % (Auto) 13.8 [place] % (Auto) 5.5 Eos % (Auto) 0.7 Baso % (Auto) 0.3 Neut # (Auto) 5.9 Lymph # (Auto) 1.0 [place] # (Auto) 0.4 Eos # (Auto) 0.1 Baso # (Auto) 0.0 WBC Differential . Differential Comment . PT 10.5 INR 1.0 APTT 25.1 Sodium 138 Potassium 3.8 Chloride 100 Carbon Dioxide 28.7 Anion Gap 9 BUN 14 Creatinine 0.83 Estimated GFR 70 L Random Glucose 107 H Calcium 8.6 Magnesium 2.1 Total Bilirubin 2.2 H AST 233 H ALT 158 H Alkaline Phosphatase 192 H Total Creatine Kinase 99 Troponin I Less than 0.02 L Total Protein 7.2 Albumin 3.5 Lipase 173 Urine Color Urine Clarity Urine pH Ur Specific [place] Urine Protein Urine Glucose (UA) Urine Ketones Urine Occult Blood Urine Nitrate Urine Bilirubin Urine Urobilinogen Ur Leukocyte Esterase Urine WBC Ur Squamous Epith Cells Micro UA Comment Ur Microscopic Review Urine Culture Comments - Impressions ITS Impressions Abdomen/Pelvis CT 12/20/17 14:27 CONCLUSION: Approximate 4 mm distal common bile duct stone with minimal prominence of the common bile duct. Questionable gallstones is of the gallbladder. Discharge Plan - Discharge Disposition Patient Disposition: 01 Discharge Home - Discharge Condition Condition: Stable - Discharge Details Anticipated Discharge Date: 12/21/17 Discharge Comment: If diet tolerated and if ok with GI - Physicians Team Primary Care Provider: UNKNOWN, Attending Provider: Gurinder Duke Other Providers: Toni Estrada MD
[2017-12-21] MEDS ORDERED: Chlorhexidine Gluconate 2% 1 Pack (2 Cloths) TOPICAL ONE (15:50)
[2017-12-21] MEDS ORDERED: Metoprolol Tartrate 25 MG Tablet PO ONE (15:50)
[2017-12-21] MEDS ORDERED: Sodium Chlor 0.9% Inj 500 ML IV.SIG ONE (16:00)
[2017-12-21] MEDS ORDERED: Succinylcholine Inj 100 MG/5 ML Syringe IV.PUSH ONE (17:30)
[2017-12-21] MEDS ORDERED: Lidocaine PF 1% Inj 5 ML Syringe OTHER ONE (17:30)
[2017-12-21] MEDS ORDERED: Sincalide Inj 5 MCG Vial ONE (18:12)
--- NOTE | 2017-12-21 18:52 | P.PCN ---
Date of procedure: 12/21/17 Pre-op diagnosis: Choledocholithiasis Procedure: PROCEDURE PERFORMED ERCP with needle knife sphincterotomy PROCEDURE: The procedure, risks and benefits were discussed with Patient/POA and informed consent was obtained. Anesthesia sedated Patient with Diprivan general anesthesia. Patient was placed in the left lateral decubitus position. ERCP: Patient was placed in a supine position. The Pentax videoscope was introduced through the oropharynx and advanced to the second portion of the duodenum where the ampula was identified. FINDINGS: The ampulla appeared to be within normal limits several attempts were made to cannulate the bile duct and were unsuccessful a small needle knife sphincterotomy was initially performed and then more attempts at cannulating this too was unsuccessful I extended the needle knife sphincterotomy and did some more trials to cannulate the common bile duct all were unsuccessful Kinevac was also given and no secretions were noted and so after multiple tries at cannulation we decided to abort ESTIMATED BLOOD LOSS: None SPECIMENS REMOVED: None COMPLICATIONS: None IMPRESSION: Choledocholithiasis with unsuccessful ERCP PLAN: We will obtain surgical evaluation for cholecystectomy although this is not urgent at this point We will reattempt ERCP in 2 days Continue with current supportive care Anesthesia: YO Surgeon: Toni Estrada Condition: stable Disposition: floor
--- NOTE | 2017-12-21 19:04 | P.PNIM ---
Subjective Interval history: Incomplete ERCP today. Will need to repeat ERCP in 2 days, per GI. Not stable for discharge due to persisting choledocholithiasis. Physical Exam Vital signs: Vital Signs 12/20/17 19:29 12/20/17 20:15 12/21/17 00:00 Temperature 98 F 98.1 F Pulse Rate 78 57 L 54 L Respiratory Rate 18 16 16 Blood Pressure 125/72 132/63 106/57 L Pulse Oximetry 98 96 12/21/17 04:00 12/21/17 08:00 Temperature 97.7 F 97.6 F Pulse Rate 53 L 57 L Respiratory Rate 16 20 Blood Pressure 103/54 L 129/69 Pulse Oximetry 97 97 Intake & Output 12/21/17 12/21/17 12/22/17 06:59 18:59 06:59 Intake Total 1240 / 1240 Balance 1240 / 1240 Weight 78 kg Intake: IV 1000 / 1000 NS Inj 1,000 ML @ 100 mls/hr IV 1000 / 1000 .CONT .Q10H ALISTAIR Rx#:[id number] Oral 240 / 240 Other: # Voids 0 Date of Last Bowel Movement 12/20/17 # Bowel Movements 0 Weight On Admission 77.8 kg Narrative: GENERAL: Well-developed, well-nourished, in no acute distress. alert and orientated HEENT: Head is normocephalic without any lesions or masses noted. Facial features are symmetric. Eyes: Pupils equal round reactive to light. Extraocular muscles are intact. Conjunctivae were clear. Oropharyngeal: Pharynx without any erythema edema. Tongue is midline without deviation. Buccal mucosa is moist without any masses or lesions NECK: Supple without any masses. Trachea midline no deviation. No JVD, no bruits are appreciated CARDIAC: Regular rhythm, regular rate. S1/S2 are heard. No murmurs gallops or rubs. LUNGS: Clear to auscultation bilaterally. No wheeze, rhonchi or rales. No use of accessory muscles on inspiration or expiration. ABDOMEN: Soft, nontender. Nondistended. Bowel sounds heard in all 4 quadrants. No organomegaly or masses. Negative rebound, negative guarding, negative García sign EXTREMITIES: No edema, pulses are equal bilaterally. No cyanosis or clubbing NEUROLOGY: Mood and affect appear appropriate. Cranial nerves II through XII grossly intact. Muscle strength 5/5 in upper and lower extremities bilaterally. Deep tendon reflexes are 2+ in upper and lower extremities bilaterally. Results - Labs CBC & Chem 7: 12/21/17 10:00 12/21/17 10:00 Laboratory Results - last 24 hr 12/21/17 12/21/17 10:00 10:00 WBC 5.4 RBC 3.90 L Hgb 13.4 Hct 38.0 MCV 97.5 MCH 34.4 H MCHC 35.3 RDW 12.7 Plt Count 172 MPV 6.4 L Neut % (Auto) 66.0 Lymph % (Auto) 25.3 [place] % (Auto) 6.3 Eos % (Auto) 1.6 Baso % (Auto) 0.8 Neut # (Auto) 3.5 Lymph # (Auto) 1.4 [place] # (Auto) 0.3 Eos # (Auto) 0.1 Baso # (Auto) 0.0 WBC Differential . Differential Comment Auto diff final Sodium 139 Potassium 3.8 Chloride 105 Carbon Dioxide 25.7 Anion Gap 8 BUN 13 Creatinine 0.75 Estimated GFR 78 L Random Glucose 71 L Calcium 8.4 L Total Bilirubin 0.8 AST 99 H ALT 149 H Alkaline Phosphatase 180 H Total Protein 6.8 Albumin 3.4 - Procedures ERCP Assessment and Plan - Assessment (1) Choledocholithiasis Code(s): K80.50 - Calculus of bile duct without cholangitis or cholecystitis without obstruction Status: Acute - Plan 62 year old admitted with abdominal pain from Choledocholithiasis Choledocholithiasis ERCP today, procedure could not be completed Repeat ERCP planned in 2 days Continue PRN pain treatments IV Hydration GI Following DVT prevention SCDs
[2017-12-21] MEDS ORDERED: fentaNYL Citrate Inj 100 MCG/2 ML Ampul ONE (19:11)
[2017-12-22] MEDS: Sod Chloride 0.9% Inj 1,000 ML IV.CONT SCH ×4 (01:45→20:30)
[2017-12-22 08:21] LABS: Baso % (Auto) 0.1 % (0.0-2.0); Hemoglobin 12.7 gm/dL (11.6-15.3); Lymph # (Auto) 0.6 th/mm3 (1.0-4.8); Lymph % (Auto) 12.6 % (9.0-44.0); Mean Corpuscular Hemoglobin 34.3 pg (27.0-34.0); Mean Corpuscular Volume 94.7 fL (80.0-100.0); Mean Platelet Volume 6.8 fL (7.0-11.0); Mono # (Auto) 0.1 th/mm3 (0.0-0.9); Mono % (Auto) 1.7 % (0.0-8.0); Neut # (Auto) 4.2 th/mm3 (1.8-7.7); Neut % (Auto) 85.6 % (16.0-70.0); Platelet Count 192 th/mm3 (150-450); Red Cell Distribution Width 12.7 % (11.6-17.2); White Blood Count 4.9 th/mm3 (4.0-11.0)
[2017-12-22 08:32] LABS: Mean Corpuscular HGB Conc 36.2 % (32.0-36.0)
[2017-12-22 08:36] LABS: Albumin 3.2 g/dL (3.4-5.0); Anion Gap 9 meq/L (5-15); Aspartate Aminotransferase 41 U/L (15-37); Blood Urea Nitrogen 12 mg/dL (7-18); Calcium 8.3 mg/dL (8.5-10.1); Carbon Dioxide 27.1 meq/L (21.0-32.0); Chloride 105 meq/L (98-107); Glomerular Filtration Rate Greater Than 89 mL/min (>89); Glucose,Random 103 mg/dL (74-106); Potassium 4.2 meq/L (3.5-5.1); Sodium 141 meq/L (136-145)
[2017-12-22 08:41] LABS: Alanine Aminotransferase 107 U/L (10-53); Alkaline Phosphatase 165 U/L (45-117); Total Protein 6.6 g/dL (6.4-8.2)
[2017-12-22] MEDS: Senna/Docusate Sodium 8.6/50 MG Tablet PO SCH ×2 (10:00→20:31)
--- NOTE | 2017-12-22 11:40 | P.PNIM ---
Subjective Interval history: Status post ERCP yesterday. Full procedure was not possible. Repeat attempt planned for tomorrow. No new complaints from the patient. No abdominal pain when seen. Physical Exam Vital signs: Vital Signs 12/21/17 12:00 12/21/17 18:44 12/21/17 19:05 Temperature 98.0 F 97.8 F Pulse Rate 58 L 82 75 Respiratory Rate 20 18 18 Blood Pressure 127/60 161/73 H 160/75 H Pulse Oximetry 96 97 97 12/21/17 19:25 12/21/17 20:00 12/22/17 00:00 Temperature 97.8 F 98.1 F 98.1 F Pulse Rate 82 61 61 Respiratory Rate 18 18 18 Blood Pressure 152/65 H 152/66 H 117/58 L Pulse Oximetry 97 97 98 12/22/17 04:00 12/22/17 08:00 Temperature 97.9 F 97.7 F Pulse Rate 62 55 L Respiratory Rate 18 16 Blood Pressure 151/67 H 150/73 H Pulse Oximetry 95 95 Intake & Output 12/21/17 12/22/17 12/22/17 18:59 06:59 18:59 Intake Total 900 / 900 570 / 570 Balance 900 / 900 570 / 570 Weight 80.1 kg Intake: Oral 570 / 570 Anesthesia Amount 900 / 900 Other: # Voids 5 # Bowel Movements 5 Narrative: GENERAL: Well-developed, well-nourished, in no acute distress. alert and orientated HEENT: Head is normocephalic without any lesions or masses noted. Facial features are symmetric. Eyes: Pupils equal round reactive to light. Extraocular muscles are intact. Conjunctivae were clear. Oropharyngeal: Pharynx without any erythema edema. Tongue is midline without deviation. Buccal mucosa is moist without any masses or lesions NECK: Supple without any masses. Trachea midline no deviation. No JVD, no bruits are appreciated CARDIAC: Regular rhythm, regular rate. S1/S2 are heard. No murmurs gallops or rubs. LUNGS: Clear to auscultation bilaterally. No wheeze, rhonchi or rales. No use of accessory muscles on inspiration or expiration. ABDOMEN: Soft, nontender. Nondistended. Bowel sounds heard in all 4 quadrants. No organomegaly or masses. Negative rebound, negative guarding, negative García sign EXTREMITIES: No edema, pulses are equal bilaterally. No cyanosis or clubbing NEUROLOGY: Mood and affect appear appropriate. Cranial nerves II through XII grossly intact. Muscle strength 5/5 in upper and lower extremities bilaterally. Deep tendon reflexes are 2+ in upper and lower extremities bilaterally. Results - Labs CBC & Chem 7: 12/22/17 06:58 12/22/17 06:58 Laboratory Results - last 24 hr 12/22/17 12/22/17 06:58 06:58 WBC 4.9 RBC 3.70 L Hgb 12.7 Hct 35.0 MCV 94.7 MCH 34.3 H MCHC 36.2 H RDW 12.7 Plt Count 192 MPV 6.8 L Prelim Diff (Auto) Slide review pending Neut % (Auto) 85.6 H Lymph % (Auto) 12.6 [place] % (Auto) 1.7 Eos % (Auto) 0.0 Baso % (Auto) 0.1 Neut # (Auto) 4.2 Lymph # (Auto) 0.6 L [place] # (Auto) 0.1 Eos # (Auto) 0.0 Baso # (Auto) 0.0 WBC Differential . Diff Scan Auto diff confirmed Differential Comment . Sodium 141 Potassium 4.2 Chloride 105 Carbon Dioxide 27.1 Anion Gap 9 BUN 12 Creatinine 0.65 Estimated GFR Greater than 89 Random Glucose 103 Calcium 8.3 L Total Bilirubin 0.5 AST 41 H ALT 107 H Alkaline Phosphatase 165 H Total Protein 6.6 Albumin 3.2 L Assessment and Plan - Assessment (1) Choledocholithiasis Code(s): K80.50 - Calculus of bile duct without cholangitis or cholecystitis without obstruction Status: Acute - Plan 62 year old admitted with abdominal pain from Choledocholithiasis No acute distress. No abdominal pain today. Plan for repeat ERCP on 12/23/2017 Choledocholithiasis ERCP occurred yesterday, procedure could not be completed Repeat ERCP planned on 12/23/2017 Continue PRN pain treatments IV Hydration GI Following DVT prevention SCDs
--- NOTE | 2017-12-22 14:10 | P.PNGI ---
Subjective Interval history: Patient ambulating in room Spouse at bedside Patient eating popsicle, denies abdominal pain at this time. No nausea or vomiting <Taylor Be - Last Filed: 12/22/17 14:05> Physical Exam Vital signs: Vital Signs 12/21/17 18:44 12/21/17 19:05 12/21/17 19:25 Temperature 97.8 F 97.8 F Pulse Rate 82 75 82 Respiratory Rate 18 18 18 Blood Pressure 161/73 H 160/75 H 152/65 H Pulse Oximetry 97 97 97 12/21/17 20:00 12/22/17 00:00 12/22/17 04:00 Temperature 98.1 F 98.1 F 97.9 F Pulse Rate 61 61 62 Respiratory Rate 18 18 18 Blood Pressure 152/66 H 117/58 L 151/67 H Pulse Oximetry 97 98 95 12/22/17 08:00 12/22/17 12:00 Temperature 97.7 F 97.8 F Pulse Rate 55 L 55 L Respiratory Rate 16 18 Blood Pressure 150/73 H 137/63 Pulse Oximetry 95 98 Intake & Output 12/21/17 12/22/17 12/22/17 18:59 06:59 18:59 Intake Total 900 / 900 570 / 570 Balance 900 / 900 570 / 570 Weight 80.1 kg Intake: Oral 570 / 570 Anesthesia Amount 900 / 900 Other: # Voids 5 # Bowel Movements 5 - Constitutional no acute distress - Routine HEENT Exam Head: Present: normocephalic - Routine Respiratory Exam Present: CTA bilaterally. Absent: accessory muscle use - Routine Extremities Exam Absent: edema - Routine Skin Exam Present: dry, warm - Routine Neurological Exam Present: alert, oriented X3 - Routine Psychiatric Exam Present: normal affect, cooperative <Taylor Be - Last Filed: 12/22/17 14:05> Vital signs: Vital Signs 12/22/17 00:00 12/22/17 04:00 12/22/17 08:00 Temperature 98.1 F 97.9 F 97.7 F Pulse Rate 61 62 55 L Respiratory Rate 18 18 16 Blood Pressure 117/58 L 151/67 H 150/73 H Pulse Oximetry 98 95 95 12/22/17 12:00 12/22/17 16:00 Temperature 97.8 F 97.6 F Pulse Rate 55 L 53 L Respiratory Rate 18 18 Blood Pressure 137/63 173/68 H Pulse Oximetry 98 100 Intake & Output 12/22/17 12/22/17 12/23/17 06:59 18:59 06:59 Intake Total 570 / 570 960 / 960 1000 / 1000 Output Total 1200 / 1200 Balance 570 / 570 -240 / -240 1000 / 1000 Weight 80.1 kg Intake: IV 1000 / 1000 NS Inj 1,000 ML @ 100 mls/hr IV 1000 / 1000 .CONT .Q10H [facility] Rx#:[id number] Oral 570 / 570 960 / 960 Output: Urine 1200 / 1200 Other: # Voids 5 Date of Last Bowel Movement 12/20/17 # Bowel Movements 5 0 <Toni Estrada E - Last Filed: 12/22/17 21:26> Results - Labs CBC & Chem 7: 12/22/17 06:58 12/22/17 06:58 Laboratory Results - last 24 hr 12/22/17 12/22/17 06:58 06:58 WBC 4.9 RBC 3.70 L Hgb 12.7 Hct 35.0 MCV 94.7 MCH 34.3 H MCHC 36.2 H RDW 12.7 Plt Count 192 MPV 6.8 L Prelim Diff (Auto) Slide review pending Neut % (Auto) 85.6 H Lymph % (Auto) 12.6 [place] % (Auto) 1.7 Eos % (Auto) 0.0 Baso % (Auto) 0.1 Neut # (Auto) 4.2 Lymph # (Auto) 0.6 L [place] # (Auto) 0.1 Eos # (Auto) 0.0 Baso # (Auto) 0.0 WBC Differential . Diff Scan Auto diff confirmed Differential Comment . Sodium 141 Potassium 4.2 Chloride 105 Carbon Dioxide 27.1 Anion Gap 9 BUN 12 Creatinine 0.65 Estimated GFR Greater than 89 Random Glucose 103 Calcium 8.3 L Total Bilirubin 0.5 AST 41 H ALT 107 H Alkaline Phosphatase 165 H Total Protein 6.6 Albumin 3.2 L <Taylor Be - Last Filed: 12/22/17 14:05> - Labs CBC & Chem 7: 12/22/17 06:58 12/22/17 06:58 Laboratory Results - last 24 hr 12/22/17 12/22/17 06:58 06:58 WBC 4.9 RBC 3.70 L Hgb 12.7 Hct 35.0 MCV 94.7 MCH 34.3 H MCHC 36.2 H RDW 12.7 Plt Count 192 MPV 6.8 L Prelim Diff (Auto) Slide review pending Neut % (Auto) 85.6 H Lymph % (Auto) 12.6 [place] % (Auto) 1.7 Eos % (Auto) 0.0 Baso % (Auto) 0.1 Neut # (Auto) 4.2 Lymph # (Auto) 0.6 L [place] # (Auto) 0.1 Eos # (Auto) 0.0 Baso # (Auto) 0.0 WBC Differential . Diff Scan Auto diff confirmed Differential Comment . Sodium 141 Potassium 4.2 Chloride 105 Carbon Dioxide 27.1 Anion Gap 9 BUN 12 Creatinine 0.65 Estimated GFR Greater than 89 Random Glucose 103 Calcium 8.3 L Total Bilirubin 0.5 AST 41 H ALT 107 H Alkaline Phosphatase 165 H Total Protein 6.6 Albumin 3.2 L <Toni Estrada - Last Filed: 12/22/17 21:26> Assessment and Plan (1) Choledocholithiasis Status: Acute Code(s): K80.50 - Calculus of bile duct without cholangitis or cholecystitis without obstruction - Plan 12/22/2017 Choledocholithiasis ERCP attempt unsuccessful on 12/21/2017 Repeat ERCP on 12/23/2017 for retrieval of stone and common bile duct Hemoglobin 12.7 hematocrit 35.0 total bilirubin 0.5 AST 41 ALT 107 alk phos 165 all trending down Plan -N.p.o. after midnight -Analgesics and antiemetics per attending -ERCP tomorrow -Continue to monitor labs -Supportive care -Further recommendations to follow based on patient status and findings This patient has been seen by myself and Dr. Estrada and this note is written on his behalf - Attending Attestation Dr. Estrada <Taylor Be - Last Filed: 12/22/17 14:05> (1) Choledocholithiasis Status: Acute Code(s): K80.50 - Calculus of bile duct without cholangitis or cholecystitis without obstruction - Plan Patient seen and examined Agree with above Continue with current supportive care Monitor labs ERCP tomorrow <Toni Estrada - Last Filed: 12/22/17 21:26>
[2017-12-22] MEDS ORDERED: Aluminum/Magnesium/Simethacone Susp 30 ML UDC PO ONE (14:47)
--- NOTE | 2017-12-22 21:03 | MB ---
cc: Ra Cormier MD DATE: 12/22/2017 REASON FOR CONSULTATION: Choledocholithiasis, cholelithiasis. TRUCK STRIKER: Cedrick Renner MD CHIEF COMPLAINT: Abdominal pain. HISTORY OF PRESENT ILLNESS: The patient is a 62-year-old female who presents with acute onset of abdominal pain. She notes a history of reflux and states the pain started epigastric and continued to get worse. She had some radiation to the right side. Pain started approximately 3 days ago and progressed in intensity. Initially, it was 8/10, currently it is 4/10. She has never had pain quite this severe before. She denied any significant nausea or vomiting. She was evaluated 1 week ago for chest pain with a cardiac workup and a negative result. She denies any fevers or chills, and the pain started after eating some fatty food. She had further workup including CT scan showing 4 mm common bile duct stone. She is status post ERCP with unsuccessful cannulation. PAST MEDICAL HISTORY: Reflux. PAST SURGICAL HISTORY: , tonsillectomy. SOCIAL HISTORY: History of smoking. Denies current smoking, ETOH or IVDA. ALLERGIES: NO KNOWN DRUG ALLERGIES. MEDICATIONS: See MAR. FAMILY HISTORY: Father with coronary artery disease. Mother with coronary artery disease. Denies diabetes. REVIEW OF SYSTEMS: GENERAL: Denies fever or chills. HEENT: Denies eye pain, ear pain. NECK: No swelling or pain. LUNGS: Denies cough or wheeze. HEART: Denies palpitations or chest pain. ABDOMEN: Complains of abdominal pain. Denies vomiting. GENITOURINARY: Denies dysuria or hematuria. ENDOCRINE: Denies polyuria or polydipsia. INTEGUMENT: Denies any mass or lesions PHYSICAL EXAMINATION: GENERAL: The patient in no acute distress. VITAL SIGNS: Temperature 97.9, pulse 62, respirations 18, blood pressure 151/67, saturation 95%. HEENT: Pupils equal, round and active. No scleral icterus. NECK: Supple. Trachea midline. LUNGS: Clear to auscultation, bilateral expansion. HEART: S1, S2 regular. ABDOMEN: Soft, minimal tenderness to palpation. No rebound, no guarding. EXTREMITIES: Warm and well perfused. NEUROLOGIC: A and O x4, moving all extremities. BACK: Normal curvature. INTEGUMENT: No obvious masses or lesions. PSYCHIATRIC: Appropriate mood, appropriate insight. LABORATORY AND DIAGNOSTIC DATA: WBC 4.9, hemoglobin 12.7, hematocrit 35, platelets 192. Sodium 141, potassium 4.2, chloride 105, BUN is 12, creatinine 0.6. AST is 41, ALT 107. Lipase is 173. Previous laboratory value: Admission total bilirubin 2.2, admission AST 233, 158 ALT, and alkaline phosphatase is 192. CT reviewed by myself showing gallbladder stones, common bile duct stone, 4 mm distal common bile duct. ASSESSMENT: The patient is a 60-year-old female with right upper quadrant abdominal pain, epigastric pain, presents with choledocholithiasis status post ERCP. PLAN: After a full workup, the patient with the above-named issues. At this point, gastroenterology planning for a repeat ERCP tomorrow. I will follow along with the patient and evaluate for successful ERCP. If ERCP is successful, then I will plan for a followup cholecystectomy laparoscopically. If, however, the patient unable to undergo successful ERCP, then we will plan for laparoscopic cholecystectomy with laparoscopic common bile duct exploration. Discussed with the patient in detail, states understanding and agrees. Thank you for consultation. Will continue to follow. MD COLLEEN Arango/suresh , 05:57 PM , 06:07 PM
[2017-12-23] MEDS: Sod Chloride 0.9% Inj 1,000 ML IV.CONT SCH ×2 (06:35→16:09)
[2017-12-23] MEDS ORDERED: Lidocaine PF 1% Inj 5 ML Syringe OTHER ONE (09:29)
[2017-12-23] MEDS: Senna/Docusate Sodium 8.6/50 MG Tablet PO SCH (10:13)
--- NOTE | 2017-12-23 12:47 | P.PCN ---
Date of procedure: 12/23/17 Pre-op diagnosis: Choledocholithiasis Procedure: PROCEDURE PERFORMED ERCP with sphincterotomy and balloon extraction PROCEDURE: The procedure, risks and benefits were discussed with Patient/POA and informed consent was obtained. Anesthesia sedated Patient with Diprivan. Patient was placed in the left lateral decubitus position. ERCP: Patient was placed in a prone position. The Pentax videoscope was introduced through the oropharynx and advanced to the second portion of the duodenum where the ampula was identified. FINDINGS: The scope was advanced to the ampulla which had the appearance of a prior partial sphincterotomy I was able to cannulate with relative ease today the common bile duct it did have quite a bit of resistance to passing the wire and the sphincterotome suggesting scarring and ampullary stricture but I was able to advance the sphincter tone and the sphincterotomy was extended sufficiently for the removal of the stone the patient was noted to have a normal bile duct but there was a filling defect in the distal portion using the 8 mm balloon we were able to pull out the stone and no further filling defects were noted the intrahepatics appeared to be unremarkable the gallbladder did not fill ESTIMATED BLOOD LOSS: None SPECIMENS REMOVED: None COMPLICATIONS: None IMPRESSION: Ampullary stricture Choledocholithiasis PLAN: Continue with current supportive care Further recommendations as per the general surgery service Anesthesia: MAC Surgeon: Toni Estrada Condition: stable Disposition: floor
[2017-12-23] MEDS ORDERED: Metoprolol Tartrate 25 MG Tablet PO ONE (13:18)
[2017-12-23] MEDS ORDERED: Chlorhexidine Gluconate 2% 1 Pack (2 Cloths) TOPICAL ONE (13:18)
--- NOTE | 2017-12-23 13:21 | FL ---
EXAM DATE: 12/23/2017 1:11 PM EDT AGE/SEX: 62 years / Female INDICATIONS: Evaluate for obstruction with sphincterotomy and stone removal. CLINICAL DATA: This is the patient's initial encounter. Patient reports that signs and symptoms have been present for 1 day and indicates a pain score of Nonresponsive. MEDICAL/SURGICAL HISTORY: None. None. COMPARISON: [facility], CT ABDOMEN & PELVIS W CONTRAST, 12/20/2017. . FINDINGS: An ERCP was performed by the ordering physician. The images demonstrate contrast opacifying the comm on bile duct and intrahepatic biliary tree with cannulation of the common bile duct and guidewire not ed. The final image does not demonstrate an obvious filling defect. CONCLUSION: ERCP as above. Final image unremarkable without obvious filling defect. Electronically signed by: Umberto Tarango MD 12/23/2017 1:20 PM EDT
[2017-12-23] MEDS ORDERED: Sodium Chlor 0.9% Inj 500 ML IV.SIG SCH (14:00)
--- NOTE | 2017-12-23 15:27 | P.PNIM ---
Subjective Interval history: Status post ERCP today. Successful removal of duct stone. Patient has had liquids to eat and complains of no abdominal pain. Surgical plan is for cholecystectomy. Physical Exam Vital signs: Vital Signs 12/22/17 16:00 12/22/17 20:00 12/23/17 00:00 Temperature 97.6 F 97.7 F 97.5 F L Pulse Rate 53 L 53 L 78 Respiratory Rate 18 17 18 Blood Pressure 173/68 H 148/63 H 139/64 Pulse Oximetry 100 99 97 12/23/17 04:00 12/23/17 05:21 12/23/17 08:00 Temperature 97.6 F 97.6 F Pulse Rate 51 L 51 L Respiratory Rate 18 Blood Pressure 124/58 L Pulse Oximetry 98 97 Intake & Output 12/22/17 12/23/17 12/23/17 18:59 06:59 18:59 Intake Total 960 / 960 2240 / 2240 300 / 300 Output Total 1200 / 1200 700 / 700 Balance -240 / -240 1540 / 1540 300 / 300 Weight 81.4 kg Intake: IV 1999 NS Inj 1,000 ML @ 100 mls/hr IV 1999 .CONT .Q10H [facility] Rx#:[id number] Oral 960 / 960 240 / 240 Anesthesia Amount 300 / 300 Output: Urine 1200 / 1200 700 / 700 Other: Date of Last Bowel Movement 12/20/17 # Bowel Movements 0 0 Narrative: GENERAL: Well-developed, well-nourished, in no acute distress. alert and orientated HEENT: Head is normocephalic without any lesions or masses noted. Facial features are symmetric. Eyes: Pupils equal round reactive to light. Extraocular muscles are intact. Conjunctivae were clear. Oropharyngeal: Pharynx without any erythema edema. Tongue is midline without deviation. Buccal mucosa is moist without any masses or lesions NECK: Supple without any masses. Trachea midline no deviation. No JVD, no bruits are appreciated CARDIAC: Regular rhythm, regular rate. S1/S2 are heard. No murmurs gallops or rubs. LUNGS: Clear to auscultation bilaterally. No wheeze, rhonchi or rales. No use of accessory muscles on inspiration or expiration. ABDOMEN: Soft, nontender. Nondistended. Bowel sounds heard in all 4 quadrants. No organomegaly or masses. Negative rebound, negative guarding, negative García sign EXTREMITIES: No edema, pulses are equal bilaterally. No cyanosis or clubbing NEUROLOGY: Mood and affect appear appropriate. Cranial nerves II through XII grossly intact. Muscle strength 5/5 in upper and lower extremities bilaterally. Deep tendon reflexes are 2+ in upper and lower extremities bilaterally. Results - Labs CBC & Chem 7: 12/22/17 06:58 12/22/17 06:58 - Imaging Impressions GI Procedure 12/23/17 00:00 CONCLUSION: ERCP as above. Final image unremarkable without obvious filling defect. Assessment and Plan - Assessment (1) Choledocholithiasis Code(s): K80.50 - Calculus of bile duct without cholangitis or cholecystitis without obstruction Status: Acute - Plan 62 year old admitted with abdominal pain from Choledocholithiasis Successful ERCP on 12/23/2017. No complaints of pain from patient today. General surgery is following and plans for cholecystectomy. Choledocholithiasis ERCP occurred 12/21/17, procedure could not be completed Successful removal of stone on repeat ERCP on 12/23/2017 Continue PRN pain treatments IV Hydration GI Following General surgery following Cholecystectomy planned DVT prevention SCDs
--- NOTE | 2017-12-23 15:36 | P.PNGS ---
Subjective Patient reports: no new complaints (s/p ercp with success, pain better) Physical Exam Vital signs: Vital Signs 12/22/17 16:00 12/22/17 20:00 12/23/17 00:00 Temperature 97.6 F 97.7 F 97.5 F L Pulse Rate 53 L 53 L 78 Respiratory Rate 18 17 18 Blood Pressure 173/68 H 148/63 H 139/64 Pulse Oximetry 100 99 97 12/23/17 04:00 12/23/17 05:21 12/23/17 08:00 Temperature 97.6 F 97.6 F Pulse Rate 51 L 51 L Respiratory Rate 18 Blood Pressure 124/58 L Pulse Oximetry 98 97 Intake & Output 12/22/17 12/23/17 12/23/17 18:59 06:59 18:59 Intake Total 960 / 960 2240 / 2240 300 / 300 Output Total 1200 / 1200 700 / 700 Balance -240 / -240 1540 / 1540 300 / 300 Weight 81.4 kg Intake: IV 1999 NS Inj 1,000 ML @ 100 mls/hr IV 1999 .CONT .Q10H [facility] Rx#:[id number] Oral 960 / 960 240 / 240 Anesthesia Amount 300 / 300 Output: Urine 1200 / 1200 700 / 700 Other: Date of Last Bowel Movement 12/20/17 # Bowel Movements 0 0 - Routine Respiratory Exam Present: CTA bilaterally - Routine Cardiovascular Exam Present: RRR - Routine Abdominal Exam Present: soft, normoactive bowel sounds (mild ttp ruq) Results - Labs 12/22/17 06:58 12/22/17 06:58 - Imaging Imaging: ITS Impressions Abdomen/Pelvis CT 12/20/17 14:27 CONCLUSION: Approximate 4 mm distal common bile duct stone with minimal prominence of the common bile duct. Questionable gallstones is of the gallbladder. GI Procedure 12/23/17 00:00 CONCLUSION: ERCP as above. Final image unremarkable without obvious filling defect. Assessment and Plan - Plan choledocholithiasis, s/p ercp x2 with successful removal of stone PLAN Ok for diet npo after mn or tomorrow for lap lise possible IOC possible cbd exploration discussed with patient recheck am labs
[2017-12-24] MEDS: Senna/Docusate Sodium 8.6/50 MG Tablet PO SCH ×2 (00:13→08:58)
[2017-12-24] MEDS: Sod Chloride 0.9% Inj 1,000 ML IV.CONT SCH ×3 (03:15→12:50)
[2017-12-24 07:16] LABS: Baso % (Auto) 0.8 % (0.0-2.0); Eos # (Auto) 0.1 th/mm3 (0.0-0.4); Eos % (Auto) 1.6 % (0.0-4.0); Hematocrit 32.1 % (35.0-46.0); Hemoglobin 11.1 gm/dL (11.6-15.3); Lymph # (Auto) 1.7 th/mm3 (1.0-4.8); Lymph % (Auto) 37.1 % (9.0-44.0); Mean Corpuscular HGB Conc 34.5 % (32.0-36.0); Mean Corpuscular Hemoglobin 34.4 pg (27.0-34.0); Mean Corpuscular Volume 99.6 fL (80.0-100.0); Mono # (Auto) 0.4 th/mm3 (0.0-0.9); Mono % (Auto) 7.8 % (0.0-8.0); Neut # (Auto) 2.5 th/mm3 (1.8-7.7); Neut % (Auto) 52.7 % (16.0-70.0); Platelet Count 139 th/mm3 (150-450); Red Blood Count 3.22 mil/mm3 (4.00-5.30); Red Cell Distribution Width 12.9 % (11.6-17.2); White Blood Count 4.7 th/mm3 (4.0-11.0)
[2017-12-24 07:31] LABS: Alanine Aminotransferase 237 U/L (10-53); Albumin 2.9 g/dL (3.4-5.0); Anion Gap 6 meq/L (5-15); Aspartate Aminotransferase 146 U/L (15-37); Blood Urea Nitrogen 9 mg/dL (7-18); Calcium 7.8 mg/dL (8.5-10.1); Carbon Dioxide 26.7 meq/L (21.0-32.0); Chloride 108 meq/L (98-107); Glomerular Filtration Rate 80 mL/min (>89); Glucose,Random 90 mg/dL (74-106); Lipase 328 U/L (73-393); Potassium 3.8 meq/L (3.5-5.1); Sodium 141 meq/L (136-145)
[2017-12-24 07:33] LABS: Alkaline Phosphatase 196 U/L (45-117); Total Protein 5.7 g/dL (6.4-8.2)
[2017-12-24] MEDS ORDERED: fentaNYL Citrate Inj 100 MCG/2 ML Ampul ONE (08:58)
[2017-12-24] MEDS ORDERED: Famotidine PF Inj 20 MG/2 ML Vial ONE (09:24)
[2017-12-24] MEDS ORDERED: Ketorolac Inj 30 MG/ML (IVP) Vial IV.PUSH ONE (09:29)
[2017-12-24] MEDS ORDERED: Lidocaine PF 1% Inj 5 ML Syringe OTHER ONE (09:29)
[2017-12-24] MEDS ORDERED: Neostigmine Inj 5 MG/5 ML Syringe IV.PUSH ONE (09:29)
[2017-12-24] MEDS ORDERED: Glycopyrrolate Inj 1 MG/5 ML Syringe IV.PUSH ONE (09:29)
[2017-12-24] MEDS ORDERED: Bupivacaine/Epinephrine Inj 0.25% 50 ML Vial ONE (09:42)
[2017-12-24] MEDS ORDERED: ceFAZolin 2 GM Premix Inj 2 GM/50 ML PIGGYBACK IV.SIG ONE (10:02)
--- NOTE | 2017-12-24 11:35 | P.OP ---
- Preoperative Diagnosis (1) Choledocholithiasis - Postoperative Diagnosis (1) Choledocholithiasis Date of procedure: 12/24/17 Implants: lap lise Anesthesia: GETA Surgeon: Ra Cormier MD Estimated blood loss (mL): 5 Pathology: other (gallbladder) Operation and Findings: distended gallbladder with stones
[2017-12-24 13:24] VITALS: O2SAT 95
[2017-12-24 13:25] VITALS: RESP 16; TEMP 97.6
[2017-12-24 13:33] VITALS: BP 145/63; PULSE 64
--- NOTE | 2017-12-24 14:17 | P.PNIM ---
Subjective Interval history: Patient is doing well thus far, post op for cholecystectomy and post ERCP for choledocholithiasis the previous day. Pain controlled. She has bowel sounds when seen and is hungry. No complaints when seen. Physical Exam Vital signs: Vital Signs 12/23/17 16:00 12/23/17 20:00 12/24/17 00:00 Temperature 98.0 F 97.8 F 97.9 F Pulse Rate 58 L 58 L 55 L Respiratory Rate 18 18 16 Blood Pressure 166/72 H 142/76 H 119/69 Pulse Oximetry 95 98 96 12/24/17 04:00 12/24/17 08:00 12/24/17 11:30 Temperature 97.9 F 97.6 F 97.9 F Pulse Rate 52 L 52 L 75 Respiratory Rate 16 20 15 Blood Pressure 111/58 L 122/60 156/70 H Pulse Oximetry 96 99 97 12/24/17 11:45 12/24/17 12:00 12/24/17 12:10 Temperature 97.6 F Pulse Rate 65 63 64 Respiratory Rate 16 16 16 Blood Pressure 151/63 H 144/60 H 145/63 H Pulse Oximetry 96 96 95 Intake & Output 12/23/17 12/24/17 12/24/17 18:59 06:59 18:59 Intake Total 2120 / 2120 280 / 280 1570 / 1570 Output Total 5 / 5 Balance 2120 / 2120 280 / 280 1565 / 1565 Weight 80.6 kg Intake: IV 1100 / 1100 280 / 280 770 / 770 NS Inj 1,000 ML @ 100 mls/hr IV 1000 / 1000 280 / 280 720 / 720 .CONT .Q10H [facility] Rx#:[id number] LR 1000 mL Inj 1,000 ML @ 30 100 / 100 mls/hr IV.SIG .Q24H [facility] Rx#: [id number] NS Inj 500 ML @ 30 mls/hr IV. 0 / 0 SIG .Q10H [facility] Rx#:[id number] Ancef 2 GM Premix Inj 2 gm In 50 / 50 50 ml @ 0 mls/hr IV.SIG .STK- MED ONE Rx#:[id number] Oral 720 / 720 0 / 0 Anesthesia Amount 300 / 300 800 / 800 Output: Estimated Blood Loss 5 / 5 Other: # Voids 3 2 Narrative: GENERAL: NAD, A&Ox3 HEAD: Normocephalic. NECK: Supple, trachea midline. No lymphadenopathy. EYES: No scleral icterus. No injection or drainage. CARDIOVASCULAR: Regular rate and rhythm without murmurs, gallops, or rubs. RESPIRATORY: Breath sounds equal bilaterally. No accessory muscle use. GASTROINTESTINAL: Abdomen soft, non-tender, nondistended. Abdominal tenderness. New post op wounds anteriorly. MUSCULOSKELETAL: No cyanosis, or edema. SKIN: Warm and dry. NEURO: No focal neurological deficits. Results - Labs CBC & Chem 7: 12/24/17 06:05 12/24/17 06:05 Laboratory Results - last 24 hr 12/24/17 12/24/17 06:05 06:05 WBC 4.7 RBC 3.22 L Hgb 11.1 L Hct 32.1 L MCV 99.6 D MCH 34.4 H MCHC 34.5 RDW 12.9 Plt Count 139 L MPV 7.0 Neut % (Auto) 52.7 Lymph % (Auto) 37.1 [place] % (Auto) 7.8 Eos % (Auto) 1.6 Baso % (Auto) 0.8 Neut # (Auto) 2.5 Lymph # (Auto) 1.7 [place] # (Auto) 0.4 Eos # (Auto) 0.1 Baso # (Auto) 0.0 WBC Differential . Differential Comment Auto diff final Sodium 141 Potassium 3.8 Chloride 108 H Carbon Dioxide 26.7 Anion Gap 6 BUN 9 Creatinine 0.74 Estimated GFR 80 L Random Glucose 90 Calcium 7.8 L Total Bilirubin 0.6 AST 146 H ALT 237 H Alkaline Phosphatase 196 H Total Protein 5.7 L D Albumin 2.9 L Lipase 328 Assessment and Plan - Assessment (1) Choledocholithiasis Code(s): K80.50 - Calculus of bile duct without cholangitis or cholecystitis without obstruction Status: Acute - Plan 62 year old admitted with abdominal pain from Choledocholithiasis Successful ERCP on 12/23/2017. Status post cholecystectomy on 12/24/17. No complaints of pain from patient today. General surgery is following and plans for cholecystectomy. Choledocholithiasis ERCP occurred 12/21/17, procedure could not be completed Successful removal of stone on repeat ERCP on 12/23/2017 Continue PRN pain treatments IV Hydration GI Following General surgery following Status post cholecystectomy on 12/24/17 DVT prevention SCDs
--- NOTE | 2017-12-24 15:37 | P.PNGI ---
Subjective Interval history: Awake, resting in the bed status post lap cholecystectomy today No obvious nausea Physical Exam Vital signs: Vital Signs 12/23/17 16:00 12/23/17 20:00 12/24/17 00:00 Temperature 98.0 F 97.8 F 97.9 F Pulse Rate 58 L 58 L 55 L Respiratory Rate 18 18 16 Blood Pressure 166/72 H 142/76 H 119/69 Pulse Oximetry 95 98 96 12/24/17 04:00 12/24/17 08:00 12/24/17 11:30 Temperature 97.9 F 97.6 F 97.9 F Pulse Rate 52 L 52 L 75 Respiratory Rate 16 20 15 Blood Pressure 111/58 L 122/60 156/70 H Pulse Oximetry 96 99 97 12/24/17 11:45 12/24/17 12:00 12/24/17 12:10 Temperature 97.6 F Pulse Rate 65 63 64 Respiratory Rate 16 16 16 Blood Pressure 151/63 H 144/60 H 145/63 H Pulse Oximetry 96 96 95 Intake & Output 12/23/17 12/24/17 12/24/17 18:59 06:59 18:59 Intake Total 2120 / 2120 280 / 280 1570 / 1570 Output Total 5 / 5 Balance 2120 / 2120 280 / 280 1565 / 1565 Weight 80.6 kg Intake: IV 1100 / 1100 280 / 280 770 / 770 NS Inj 1,000 ML @ 100 mls/hr IV 1000 / 1000 280 / 280 720 / 720 .CONT .Q10H [facility] Rx#:[id number] LR 1000 mL Inj 1,000 ML @ 30 100 / 100 mls/hr IV.SIG .Q24H [facility] Rx#: [id number] NS Inj 500 ML @ 30 mls/hr IV. 0 / 0 SIG .Q10H [facility] Rx#:[id number] Ancef 2 GM Premix Inj 2 gm In 50 / 50 50 ml @ 0 mls/hr IV.SIG .STK- MED ONE Rx#:[id number] Oral 720 / 720 0 / 0 Anesthesia Amount 300 / 300 800 / 800 Output: Estimated Blood Loss 5 / 5 Other: # Voids 3 2 - Constitutional no acute distress - Routine HEENT Exam Head: Present: normocephalic ENT: Present: mucous membranes moist - Routine Abdominal Exam Present: soft (Mild tenderness secondary to lap lise, no obvious bleeding ), normoactive bowel sounds Results - Labs CBC & Chem 7: 12/24/17 06:05 12/24/17 06:05 Laboratory Results - last 24 hr 12/24/17 12/24/17 06:05 06:05 WBC 4.7 RBC 3.22 L Hgb 11.1 L Hct 32.1 L MCV 99.6 D MCH 34.4 H MCHC 34.5 RDW 12.9 Plt Count 139 L MPV 7.0 Neut % (Auto) 52.7 Lymph % (Auto) 37.1 [place] % (Auto) 7.8 Eos % (Auto) 1.6 Baso % (Auto) 0.8 Neut # (Auto) 2.5 Lymph # (Auto) 1.7 [place] # (Auto) 0.4 Eos # (Auto) 0.1 Baso # (Auto) 0.0 WBC Differential . Differential Comment Auto diff final Sodium 141 Potassium 3.8 Chloride 108 H Carbon Dioxide 26.7 Anion Gap 6 BUN 9 Creatinine 0.74 Estimated GFR 80 L Random Glucose 90 Calcium 7.8 L Total Bilirubin 0.6 AST 146 H ALT 237 H Alkaline Phosphatase 196 H Total Protein 5.7 L D Albumin 2.9 L Lipase 328 Assessment and Plan (1) Choledocholithiasis Status: Acute Code(s): K80.50 - Calculus of bile duct without cholangitis or cholecystitis without obstruction - Plan Choledocholithiasis ERCP attempt unsuccessful on 12/21/2017 Repeat ERCP on 12/23/2017 for retrieval of stone and common bile duct Hemoglobin 12.7 hematocrit 35.0 total bilirubin 0.5 AST 41 ALT 107 alk phos 165 all trending down 12/25/2007 Choledocholithiasis, 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 Okay from a GI standpoint, post discharge instructions per postop surgery Follow-up in the GI office as needed Patient was seen per myself and Dr. Gibbons, note was written on her behalf
--- NOTE | 2017-12-24 16:26 | P.DS ---
Date of admission: 12/20/17 16:51 Primary care physician: UNKNOWN Brief History from admission: 62-year-old female with no chronic medical illnesses who presented to hospital because of abdominal pain. Patient states that 3 days ago after she ate dinner she started developing pain in her epigastric right abdominal pain which progressively got worse. It did not improve so she came to the hospital for evaluation. Patient denies any nausea, vomiting, diarrhea, constipation. Patient was recently evaluated in the hospital approximate 1 week ago for chest pain. The patient did have full workup done with stress test which was unremarkable for any cardiac etiology. During that episode her pain was different. She indicates that her pain was located in the center part of her chest without any radiation, this time patient states that she is having right upper quadrant pain that started after eating. Patient had workup done emergency department found to have choledocholithiasis. Case was discussed with GI who plans to perform ERCP. DS: Diagnosis - Discharge Diagnosis (1) Choledocholithiasis Status: Acute DS: Medications - Discharge Medications Prescriptions: tramadol 50 mg PO Q6H #15 tab DS: Summary Hospital Course: Mrs. Roberts is a 62-year-old female. She was admitted secondary to choledocholithiasis. She underwent an ERCP which initially was not successful but a repeat ERCP was successful in removing the stones. She elected at that point to have a cholecystectomy as recommended by general surgery. She underwent this procedure this morning and has done well in recovery. Pain control. She is tolerating p.o. intake. Surgery has cleared this patient for discharge with outpatient follow-up. Due to her intolerance of opioids, causing nausea and vomiting, in the past she would like tramadol as a pain treatment, if needed, but she intends to avoid pain treatments if possible. No further abdominal pain or is medically stable and cleared for discharge home today. - Time Spent with Patient Total time spent providing and/or coordinating discharge services: Less than 30 minutes - Quality: VTE Deep Vein Thrombosis/Pulmonary Embolism Present on Admission: No Exam Vital signs: Vital Signs 12/23/17 20:00 12/24/17 00:00 12/24/17 04:00 Temperature 97.8 F 97.9 F 97.9 F Pulse Rate 58 L 55 L 52 L Respiratory Rate 18 16 16 Blood Pressure 142/76 H 119/69 111/58 L Pulse Oximetry 98 96 96 12/24/17 08:00 12/24/17 11:30 12/24/17 11:45 Temperature 97.6 F 97.9 F Pulse Rate 52 L 75 65 Respiratory Rate 20 15 16 Blood Pressure 122/60 156/70 H 151/63 H Pulse Oximetry 99 97 96 12/24/17 12:00 12/24/17 12:10 Temperature 97.6 F Pulse Rate 63 64 Respiratory Rate 16 16 Blood Pressure 144/60 H 145/63 H Pulse Oximetry 96 95 Intake & Output 12/23/17 12/24/17 12/24/17 18:59 06:59 18:59 Intake Total 2120 / 2120 280 / 280 1570 / 1570 Output Total 5 / 5 Balance 2120 / 2120 280 / 280 1565 / 1565 Weight 80.6 kg Intake: IV 1100 / 1100 280 / 280 770 / 770 NS Inj 1,000 ML @ 100 mls/hr IV 1000 / 1000 280 / 280 720 / 720 .CONT .Q10H [facility] Rx#:[id number] LR 1000 mL Inj 1,000 ML @ 30 100 / 100 mls/hr IV.SIG .Q24H [facility] Rx#: [id number] NS Inj 500 ML @ 30 mls/hr IV. 0 / 0 SIG .Q10H [facility] Rx#:[id number] Ancef 2 GM Premix Inj 2 gm In 50 / 50 50 ml @ 0 mls/hr IV.SIG .STK- MED ONE Rx#:[id number] Oral 720 / 720 0 / 0 Anesthesia Amount 300 / 300 800 / 800 Output: Estimated Blood Loss 5 / 5 Other: # Voids 3 2 Results Procedures completed during hospitalization: ERCP Cholecystectomy Pending studies at discharge: Pending at discharge 12/24/17 Surgical [PTH] Routine Labs on day of discharge: Labs from last 24 hours 12/24/17 12/24/17 06:05 06:05 WBC 4.7 RBC 3.22 L Hgb 11.1 L Hct 32.1 L MCV 99.6 D MCH 34.4 H MCHC 34.5 RDW 12.9 Plt Count 139 L MPV 7.0 Neut % (Auto) 52.7 Lymph % (Auto) 37.1 [place] % (Auto) 7.8 Eos % (Auto) 1.6 Baso % (Auto) 0.8 Neut # (Auto) 2.5 Lymph # (Auto) 1.7 [place] # (Auto) 0.4 Eos # (Auto) 0.1 Baso # (Auto) 0.0 WBC Differential . Differential Comment Auto diff final Sodium 141 Potassium 3.8 Chloride 108 H Carbon Dioxide 26.7 Anion Gap 6 BUN 9 Creatinine 0.74 Estimated GFR 80 L Random Glucose 90 Calcium 7.8 L Total Bilirubin 0.6 AST 146 H ALT 237 H Alkaline Phosphatase 196 H Total Protein 5.7 L D Albumin 2.9 L Lipase 328 - Impressions ITS Impressions Abdomen/Pelvis CT 12/20/17 14:27 CONCLUSION: Approximate 4 mm distal common bile duct stone with minimal prominence of the common bile duct. Questionable gallstones is of the gallbladder. GI Procedure 12/23/17 00:00 CONCLUSION: ERCP as above. Final image unremarkable without obvious filling defect. Discharge Plan - Discharge Disposition Patient Disposition: 01 Discharge Home - Discharge Condition Condition: Stable - Discharge Order Discharge Orders: Discharge Order (Routine); Ordered 12/24/17 Ordered By: Gurinder Duke - Discharge Details Anticipated Discharge Date: 12/24/17 - Physicians Team Primary Care Provider: UNKNOWN, Attending Provider: Gurinder Duke Other Providers: Toni Estrada MD ; Ra Cormier MD ; [facility]
--- NOTE | 2017-12-25 10:03 | MP ---
cc: Ra Cormier MD DATE OF OPERATION: 12/24/2017 PREOPERATIVE DIAGNOSIS: Choledocholithiasis. POSTOPERATIVE DIAGNOSIS: Cholelithiasis with choledocholithiasis. PROCEDURE PERFORMED: Laparoscopic cholecystectomy. SURGEON: Ra Cormier MD DIRECTOR HARDWARE: Leatha. ANESTHESIA: GETA. INTRAVENOUS FLUIDS: See anesthesia sheet. ESTIMATED BLOOD LOSS: 15 mL. DRAINS: None. COMPLICATIONS: None. WOUND CLASSIFICATION: Clean/contaminated. SPECIMENS: Gallbladder. FINDINGS: Distended gallbladder with induration and multiple gallstones. INDICATIONS: The patient is a 62-year-old female who presented with acute onset of abdominal pain. The patient had further workup including CT scan showing a 4 mm gallstone in the common bile duct. The patient was taken for ERCP initially without success and cannulation of the gallbladder ampulla. Therefore, the patient had a repeat ERCP with successful stone removal. She was then planned for a laparoscopic cholecystectomy. DETAILS OF PROCEDURE: The patient was taken to the operating suite, placed in supine position. She was prepped and draped in the usual sterile fashion after induction of general endotracheal anesthesia. Brief timeout done stating correct patient, procedure, surgical site, and when all were in agreement with this, attention was first directed to the umbilicus where local anesthetic was injected. A stab aminta incision was done. A 5 mm Optiview Visiport was done to the abdomen safely. On cursory inspection, no evidence of entry. Abdomen was insufflated to 15 mm pneumoperitoneum. Three other ports were placed, one 12 mm epigastric port, followed by two 5 mm right subcostal ports. Placed in reverse Trendelenburg airplane to the left. Gallbladder fundus was grasped and retracted cephalad. The cystic duct and cystic artery were dissected out with hook electro Bovie cautery and a [place] grasper. Two clips were placed proximal on the cystic artery. A small side branch single clip was placed as well and these were incised. The cystic duct was somewhat thick. Therefore, a 10 mm clip digital strategist senior manager was used. Two clips were placed proximal and 1 distal. Endo Kalpana used to transect the cystic duct. Gallbladder was removed from the gallbladder fossa with hook electro Bovie cautery. The gallbladder was placed in EndoCatch bag from the epigastric port of the abdomen. The abdomen was noted to be hemostatic. The ports and pneumoperitoneum were removed. The epigastric port was closed with 0 Vicryl. 4-0 Monocryl was used at all subcuticular ports. Sterile dressing was placed. The patient tolerated the procedure well. All lap and instrument counts were correct at the end of the procedure. The patient was extubated and taken today to PACU. MD COLLEEN Arango/adriel/jose , 11:29 PM , 11:36 PM JAY
== END 2017-12-24 17:07 | disposition home or self-care (01) ==
LOC: PHED 13:37 → INTOOBSV 16:51 → PHEDA 16:51 → N04 20:06
PROVIDERS: ADMIT Hospitalist; ATTEND Hospitalist